=== PATIENT | female | born 2000 | race Hispanic/Latino ===

== ENCOUNTER 2024-07-24 20:24 | Emergency (ER) | payer BC ==
--- OUTSIDE RECORDS SUMMARY | 2024-07-24 20:29 | XMS REPORT | Continuity of Care Document ---
Author Name Unknown Address [address] [facility] [address] [place] [address] [facility] thconnect Address [address] [facility] [address] [place] [address] Care Team Providers Care Acidity Tester Name Role Phone MAX YATES Attending Clinician Unavailable MD JEB Attending Clinician Unavailab le LAB90 Attending Clinician Unavailable JAMES DHALIWAL Attending Clinician Unavaila ble LAB59 Attending Clinician Unavailable MAYA REDMAN Attending Clinician Unavail able ADRIANA VARGHESE Attending Clinician Unavailable Pcp, Patient Does Not Have A Attending Clinician Lab, Adc Fam Pob I Attending Clinician Unavailab Letty Gomez Attending Clinician [phone] LETTY VALENZUELA Attending Clinician Unavailable Payers Payer Name Policy Type Policy Number Effective Date Expirati on Date Source [facility] ([facility]) 9 [id number] 2023 00:00:00 BCBS 2 [id number] 2023 00:00:00 Problems Condition Name Condition Details Condition Category Status Onset Date Resolution Date Last Treatment Date Treating Clinician Comments Source Bilateral hip pain Bilateral hip pain Disease Active 05-09 00:00: 00 Glenna Jackson - Externa l Acute bilateral low back pain without sciatica Acute bilateral low back pain without sciatica Disease Active 05-09 00:00: 00 Glenna Jackson - Externa l Prediabete s Prediabete s Disease Active 24 00:00: 00 Glenna Zhoua l BMI 50.0-59.9, adult BMI 50.0-59.9, adult Disease Active 02-22 00:00: 00 Glenna Zhoua l Allergies, Adverse Reactions, Alerts Allergy Name Allergy Type Status Severity Reaction(s) Onset Date Inactive Date Treating Clinician Comments Source NO KNOWN ALLERGIE S Drug Class Active [facility] Social History Social Habit Start Date Stop Date Quantity Comments Source Gender identity 2023-02-10 21:11:40 Identifies as female gender (finding) Glenna Jackson - External Exposure to SARS-CoV-2 (event) Not sure [facility] Sexual orientation Bernabe calista Jackson - External History of tobacco use Glenna Jackson - External Alcoholic beverage intake 2024-06-15 00:00:00 2024-06-15 00:00:00 Lifetime non-drinker (finding) Glenna Jackson - External Alcohol intake 2024-01-18 00:00:00 2024-01-18 00:00:00 Lifetime non-drinker (finding) Glenna Jackson - External History of Social function 2023-08-16 00:00:00 2023-08-16 00:00:00 Glenna Jackson - External Tobacco use and exposure 2023-02-22 00:00:00 2023-02-22 00:00:00 Smokeless tobacco non-user Glenna Jackson - External Sex assigned at 2000 00:00:00 2000 00:00:00 F Glenna Jackson - External Smoking Status Start Date Stop Date Source Unknown if ever smoked [facility] Never smoked tobacco Glenna Jackson - External Medications Ordered Medication Name Filled Medication Name Start Date Stop Date Current Medication? Ordering Clinician Indication Dosage Frequency Signature (SIG) Comments Components Source Phentermine HCl 37.5 MG oral Tablet 06-15 00:00: 00 Yes [id number] 37.5mg Take 1 tablet (37.5 mg total) by mouth every morning (before breakfast) . Glenna monroe Mounjaro 10 MG/0.5ML subcutaneou s Solution Pen-injecto r 6-14 00:00: 00 Yes Inject 1 injection into the skin once a week for 4 weeks Glenna monroe Celecoxib (CeleBREX) 200 MG oral Capsule 5-10 00:00: 00 Yes [id number] 200mg Q.5D Take 1 capsule (200 mg total) by mouth 2 times daily. Glenna monroe Gabapentin 100 MG oral Capsule 5-10 00:00: 00 Yes [id number] 100mg [id number] 3D Take 1 capsule (100 mg total) by mouth 3 times daily as needed. Glenna mnoroe Phentermine HCl 37.5 MG oral Tablet 04-07 00:00: 00 06-15 00:00 :00 No [id number] 37.5mg Take 1 tablet (37.5 mg total) by mouth every morning (before breakfast) . Glenna monroe Semaglutide -Weight Management (Wegovy) 1.7 MG/0.75ML subcutaneou s Solution Auto-inject or 5-10 00:00: 00 05-09 00:00 :00 No [id number] 1.7mg Inject 1.7 mg into the skin once a week. Glenna monroe Tirzepatide (Mounjaro) 10 MG/0.5ML subcutaneou s Solution Pen-injecto r 3-28 00:00: 00 05-09 00:00 :00 No [id number] 10mg Inject 0.5 mL (10 mg total) into the skin once a week. Glenna Frias l Semaglutide -Weight Management (Wegovy) 1.7 MG/0.75ML subcutaneou s Solution Auto-inject or 2-20 00:00: 00 04-07 00:00 :00 No [id number] 1.7mg Inject 1.7 mg into the skin once a week. Glenna monroe Phentermine HCl 37.5 MG oral Tablet 2-20 00:00: 00 04-07 00:00 :00 No [id number] 37.5mg Take 1 tablet (37.5 mg total) by mouth every morning (before breakfast) . Glenna Jackson - Abelardoa mabel Mounjaro 12.5 MG/0.5ML subcutaneou s Solution Pen-injecto r 1- 00:00: 00 Yes Glenna Zhoua l Phentermine HCl 37.5 MG oral Tablet 11-30 00:00: 00 01-18 00:00 :00 No 37.5mg Take 1 tablet (37.5 mg total) by mouth every morning (before breakfast) . Glenna Acuna Externa l Semaglutide -Weight Management (Wegovy) 1.7 MG/0.75ML subcutaneou s Solution Auto-inject or 2022-11 2- 00:00: 00 01-18 00:00 :00 No [id number] 1.7mg Inject 1.7 mg into the skin once a week. Glenna Jackson - Externa l Semaglutide -Weight Management (Wegovy) 1.7 MG/0.75ML subcutaneou s Solution Auto-inject or 2022-11 00:00: 00 Yes [id number] 1.7mg Inject 1.7 mg into the skin once a week. Glenna Zhoua l Phentermine HCl 37.5 MG oral Tablet 2022-11 00:00: 00 10-18 00:00 :00 No [id number] 37.5mg Take 1 tablet (37.5 mg total) by mouth every morning (before breakfast) . Glenna Jackson - Externa l Phentermine HCl 37.5 MG oral Tablet 2022-11 0 00:00: 00 10-18 00:00 :00 No [id number] 37.5mg Take 1 tablet (37.5 mg total) by mouth every morning (before breakfast) . Glenna Jackson - Externa l Semaglutide -Weight Management (Wegovy) 1 MG/0.5ML subcutaneou s Solution Auto-inject or 2022-11 0- 00:00: 00 10-18 00:00 :00 No [id number] 1mg Inject 1 mg into the skin once a week. Glenna monroe Propranolol HCl 10 MG oral Tablet 18 00:00: 00 Yes [id number] 10mg [id number] 3D TAKE ONE (1) TABLET(S) BY MOUTH THREE TIMES A DAY. Glenna monroe Semaglutide -Weight Management (Wegovy) 1 MG/0.5ML subcutaneou s Solution Auto-inject or 07-16 00:00: 00 Yes [id number] 1mg Inject 1 mg into the skin once a week Glenna monroe Phentermine HCl 37.5 MG oral Tablet 07-16 00:00: 00 Yes [id number] 37.5mg Take 1 tablet (37.5 mg total) by mouth every morning (before breakfast) Glenna monroe Propranolol HCl 10 MG oral Tablet 07-16 00:00: 00 Yes [id number] 10mg Take 1 tablet (10 mg total) by mouth 3 times daily Glenna monroe Semaglutide -Weight Management (Wegovy) 1 MG/0.5ML subcutaneou s Solution Auto-inject or 06-23 00:00: 00 07-16 00:00 :00 No [id number] 1mg Inject 1 mg into the skin once a week Glenna monroe Tirzepatide (Mounjaro) 7.5 MG/0.5ML subcutaneou s Solution Pen-injecto r 05-26 00:00: 00 Yes [id number] 7.5mg Inject 0.5 mL (7.5 mg total) into the skin once a week Glenna monroe Semaglutide -Weight Management (Wegovy) 1 MG/0.5ML subcutaneou s Solution Auto-inject or 05-25 00:00: 00 Yes [id number] 1mg Inject 1 mg into the skin once a week Glenna monroe Phentermine HCl 37.5 MG oral Tablet 05-25 00:00: 00 Yes [id number] 37.5mg Take 1 tablet (37.5 mg total) by mouth every morning (before breakfast) Glenna monroe Mounjaro 5 MG/0.5ML subcutaneou s Solution Pen-injecto r 04-19 00:00: 00 Yes Glenna monroe Semaglutide -Weight Management (Wegovy) 1 MG/0.5ML subcutaneou s Solution Auto-inject or 04-19 00:00: 00 05-25 00:00 :00 No [id number] 1mg Inject 1 mg into the skin once a week Glenna monroe Phentermine HCl 37.5 MG oral Tablet 04-19 00:00: 00 05-25 00:00 :00 No [id number] 18.75mg Take 0.5 tablets (18.75 mg total) by mouth every morning (before breakfast) Patient taking 1/2 tablet Glenna monroe Propranolol HCl 10 MG oral Tablet 03-22 00:00: 00 Yes [id number] 10mg Take 1 tablet (10 mg total) by mouth 3 times daily Glenna monroe Phentermine HCl 37.5 MG oral Tablet 03-22 00:00: 00 Yes [id number] 37.5mg Take 1 tablet (37.5 mg total) by mouth every morning (before breakfast) Glenna monroe Phentermine HCl 37.5 MG oral Tablet 02-22 00:00: 00 Yes [id number] 37.5mg Take 1 tablet (37.5 mg total) by mouth every morning (before breakfast) Glenna monroe Tirzepatide (Mounjaro) 2.5 MG/0.5ML subcutaneou s Solution Pen-injecto r 02-22 00:00: 00 05-25 00:00 :00 No [id number] 2.5mg Inject 0.5 mL (2.5 mg total) into the skin once a week Glenna monroe Immunizations Ordered Immunization Name Filled Immunization Name Date Status Comments Source HEPATITIS A- PEDI/ADOL 2013-07-18 00:00:00 Completed Glenna Seybold - External Meningococcal Vaccine- Conjugate(Menactra) 2013-07-18 00:00:00 Completed Glenna Seybold - External Tdap- (Boostrix, Adacel) 2013-07-18 00:00:00 Completed Glenna Seybold - External Varicella Vaccine 2013-07-18 00:00:00 Completed Glenna Seybold - External HEPATITIS A- PEDI/ADOL 2013-07-18 00:00:00 Completed Glenna Seybold - External Meningococcal Vaccine- Conjugate(Menactra) 2013-07-18 00:00:00 Completed Glenna Seybold - External Tdap- (Boostrix, Adacel) 2013-07-18 00:00:00 Completed Glenna Seybold - External Varicella Vaccine 2013-07-18 00:00:00 Completed Glenna Seybold - External HEPATITIS A- PEDI/ADOL 2013-07-18 00:00:00 Completed Glenna Seybold - External Meningococcal Vaccine- Conjugate(Menactra) 2013-07-18 00:00:00 Completed Glenna Seybold - External Tdap- (Boostrix, Adacel) 2013-07-18 00:00:00 Completed Glenna Seybold - External Varicella Vaccine 2013-07-18 00:00:00 Completed Glenna Seybold - External HEPATITIS A- PEDI/ADOL 2013-07-18 00:00:00 Completed Glenna Seybold - External Meningococcal Vaccine- Conjugate(Menactra) 2013-07-18 00:00:00 Completed Glenna Seybold - External Tdap- (Boostrix, Adacel) 2013-07-18 00:00:00 Completed Glenna Seybold - External Varicella Vaccine 2013-07-18 00:00:00 Completed Glenna Seybold - External HEPATITIS A- PEDI/ADOL 2013-07-18 00:00:00 Completed Glenna Seybold - External Meningococcal Vaccine- Conjugate(Menactra) 2013-07-18 00:00:00 Completed Glenna Seybold - External Tdap- (Boostrix, Adacel) 2013-07-18 00:00:00 Completed Glenna Seybold - External Varicella Vaccine 2013-07-18 00:00:00 Completed Glenna Seybold - External DTaP Unspecified 2004-02-26 00:00:00 Completed Glenna Seybold - External MMR- Measles, Mumps, Rubella 2004-02-26 00:00:00 Completed Glenna Seybold - External IPV- Inactivated Polio Vaccine 2004-02-26 00:00:00 Completed Glenna Seybold - External DTaP Unspecified 2004-02-26 00:00:00 Completed Glenna Seybold - External DTaP Unspecified 2004-02-26 00:00:00 Completed Glenna Seybold - External MMR- Measles, Mumps, Rubella 2004-02-26 00:00:00 Completed Glenna Seybold - External IPV- Inactivated Polio Vaccine 2004-02-26 00:00:00 Completed Glenna Seybold - External MMR- Measles, Mumps, Rubella 2004-02-26 00:00:00 Completed Glenna Seybold - External IPV- Inactivated Polio Vaccine 2004-02-26 00:00:00 Completed Glenna Seybold - External DTaP Unspecified 2004-02-26 00:00:00 Completed Glenna Seybold - External MMR- Measles, Mumps, Rubella 2004-02-26 00:00:00 Completed Glenna Seybold - External IPV- Inactivated Polio Vaccine 2004-02-26 00:00:00 Completed Glenna Seybold - External DTaP Unspecified 2004-02-26 00:00:00 Completed Glenna Seybold - External MMR- Measles, Mumps, Rubella 2004-02-26 00:00:00 Completed Glenna Seybold - External IPV- Inactivated Polio Vaccine 2004-02-26 00:00:00 Completed Glenna Abdiybold - External Hepatitis B, Adolescent Or Pediatric 2000 00:00:00 Completed Glenna Seybold - External IPV- Inactivated Polio Vaccine 2000 00:00:00 Completed Glenna Seybold - External Hepatitis B, Adolescent Or Pediatric 2000 00:00:00 Completed Glenna Seybold - External IPV- Inactivated Polio Vaccine 2000 00:00:00 Completed Glenna Abdiybold - External Hepatitis B, Adolescent Or Pediatric 2000 00:00:00 Completed Glenna Seybold - External IPV- Inactivated Polio Vaccine 2000 00:00:00 Completed Glenna Seybold - External Hepatitis B, Adolescent Or Pediatric 2000 00:00:00 Completed Glenna Seybold - External IPV- Inactivated Polio Vaccine 2000 00:00:00 Completed Glenna Seybold - External Hepatitis B, Adolescent Or Pediatric 2000 00:00:00 Completed Glenna Seybold - External IPV- Inactivated Polio Vaccine 2000 00:00:00 Completed Glenna Seybold - External DPT/HIB 2000 00:00:00 Completed Glenna Seybold - External Hepatitis B, Adolescent Or Pediatric 2000 00:00:00 Completed Glenna Seybold - External DPT/HIB 2000 00:00:00 Completed Glenna Seybold - External Hepatitis B, Adolescent Or Pediatric 2000 00:00:00 Completed Glenna Seybold - External DPT/HIB 2000 00:00:00 Completed Glenna Seybold - External Hepatitis B, Adolescent Or Pediatric 2000 00:00:00 Completed Glenna Seybold - External DPT/HIB 2000 00:00:00 Completed Glenna Seybold - External Hepatitis B, Adolescent Or Pediatric 2000 00:00:00 Completed Glenna Seybold - External DPT/HIB 2000 00:00:00 Completed Glenna Seybold - External Hepatitis B, Adolescent Or Pediatric 2000 00:00:00 Completed Glenna Seybold - External DPT/HIB 2000 00:00:00 Completed Glenna Seybold - External IPV- Inactivated Polio Vaccine 2000 00:00:00 Completed Glenna Seybold - External DPT/HIB 2000 00:00:00 Completed Glenna Seybold - External IPV- Inactivated Polio Vaccine 2000 00:00:00 Completed Glenna Seybold - External DPT/HIB 2000 00:00:00 Completed Glenna Seybold - External IPV- Inactivated Polio Vaccine 2000 00:00:00 Completed Glenna Seybold - External DPT/HIB 2000 00:00:00 Completed Glenna Seybold - External IPV- Inactivated Polio Vaccine 2000 00:00:00 Completed Glenna Seybold - External DPT/HIB 2000 00:00:00 Completed Glenna Seybold - External IPV- Inactivated Polio Vaccine 2000 00:00:00 Completed Glenna Seybold - External DTaP Unspecified Unknown Completed Noah abdiy Seybold - External DPT/HIB Unknown Completed Glenna Silverman bold - External DPT/HIB Unknown Completed Glenna Silverman bold - External HEPATITIS A- PEDI/ADOL Unknown Completed Glenna Seybold - External Hepatitis B, Adolescent Or Pediatric Unknown Completed Glenna Seybold - External Hepatitis B, Adolescent Or Pediatric Unknown Completed Glenna Seybold - External Meningococcal Vaccine- Conjugate(Menactra) Unknown Completed Glenna Perez eybold - External MMR- Measles, Mumps, Rubella Unknown Completed Glenna Seybold - External IPV- Inactivated Polio Vaccine Unknown Completed Glenna Seybold - External IPV- Inactivated Polio Vaccine Unknown Completed Glenna Seybold - External IPV- Inactivated Polio Vaccine Unknown Completed Glenna Seybold - External Tdap- (Boostrix, Adacel) Unknown Completed Glenna Seybold - External Varicella Vaccine Unknown Completed Delfino ferrari Seybold - External DTaP Unspecified Unknown Completed Noah silverman Seybold - External DPT/HIB Unknown Completed Glenna Silverman bold - External DPT/HIB Unknown Completed Glenna Silverman bold - External HEPATITIS A- PEDI/ADOL Unknown Completed Glenna Seybold - External Hepatitis B, Adolescent Or Pediatric Unknown Completed Glenna Seybold - External Hepatitis B, Adolescent Or Pediatric Unknown Completed Glenna Seybold - External Meningococcal Vaccine- Conjugate(Menactra) Unknown Completed Glenna Perez eybold - External MMR- Measles, Mumps, Rubella Unknown Completed Glenna Seybold - External IPV- Inactivated Polio Vaccine Unknown Completed Glenna Seybold - External IPV- Inactivated Polio Vaccine Unknown Completed Glenna Seybold - External IPV- Inactivated Polio Vaccine Unknown Completed Glenna Seybold - External Tdap- (Boostrix, Adacel) Unknown Completed Glenna Seybold - External Varicella Vaccine Unknown Completed Delfino lsey Seybold - External DTaP Unspecified Unknown Completed Noah abdiy Seybold - External DPT/HIB Unknown Completed Glenna Silverman bold - External DPT/HIB Unknown Completed Glenna Silverman bold - External HEPATITIS A- PEDI/ADOL Unknown Completed Glenna Seybold - External Hepatitis B, Adolescent Or Pediatric Unknown Completed Glenna Seybold - External Hepatitis B, Adolescent Or Pediatric Unknown Completed Glenna Seybold - External Meningococcal Vaccine- Conjugate(Menactra) Unknown Completed Glenna S eybold - External MMR- Measles, Mumps, Rubella Unknown Completed Glenna Seybold - External IPV- Inactivated Polio Vaccine Unknown Completed Glenna Seybold - External IPV- Inactivated Polio Vaccine Unknown Completed Glenna Seybold - External IPV- Inactivated Polio Vaccine Unknown Completed Glenna Seybold - External Tdap- (Boostrix, Adacel) Unknown Completed Glenna Seybold - External Varicella Vaccine Unknown Completed Delfino trevon Seybold - External DTaP Unspecified Unknown Completed Noah silverman Seybold - External DPT/HIB Unknown Completed Glenna Silverman bold - External DPT/HIB Unknown Completed Glenna Silverman bold - External HEPATITIS A- PEDI/ADOL Unknown Completed Glenna Seybold - External Hepatitis B, Adolescent Or Pediatric Unknown Completed Glenna Seybold - External Hepatitis B, Adolescent Or Pediatric Unknown Completed Glenna Seybold - External Meningococcal Vaccine- Conjugate(Menactra) Unknown Completed Glenna Perez eybold - External MMR- Measles, Mumps, Rubella Unknown Completed Glenna Seybold - External IPV- Inactivated Polio Vaccine Unknown Completed Glenna ybold - External IPV- Inactivated Polio Vaccine Unknown Completed Glenna Seybold - External IPV- Inactivated Polio Vaccine Unknown Completed Glenna Seybold - External Tdap- (Boostrix, Adacel) Unknown Completed Glenna Seybold - External Varicella Vaccine Unknown [facility]- (Boostrix, Adacel) Unknown Completed Glenna Seybold - External Hepatitis B- 2 Dose (HEPLISAV B) Unknown Completed Glenna Seybold - External DTaP Unspecified Unknown Completed Noah silverman Seybold - External DPT/HIB Unknown Completed Glenna Silverman bold - External DPT/HIB Unknown Completed Glenna Silverman bold - External HEPATITIS A- PEDI/ADOL Unknown Completed Glenna Seybold - External Hepatitis B, Adolescent Or Pediatric Unknown Completed Glenna Seybold - External Hepatitis B, Adolescent Or Pediatric Unknown Completed Glenna Seybold - External Meningococcal Vaccine- Conjugate(Menactra) Unknown Completed Glenna S eybold - External MMR- Measles, Mumps, Rubella Unknown Completed Glenna Seybold - External IPV- Inactivated Polio Vaccine Unknown Completed Glenna Seybold - External IPV- Inactivated Polio Vaccine Unknown Completed Glenna Seybold - External IPV- Inactivated Polio Vaccine Unknown Completed Glenna Seybold - External Tdap- (Boostrix, Adacel) Unknown Completed Glenna Seybold - External Varicella Vaccine Unknown Completed Delfino trevon Seybold - External Tdap- (Boostrix, Adacel) Unknown Completed Glenna Seybold - External Hepatitis B- 2 Dose (HEPLISAV B) Unknown Completed Glenna Seybold - External DTaP Unspecified Unknown Completed Noah silverman Seybold - External DPT/HIB Unknown Completed Glenna Sey bold - External DPT/HIB Unknown Completed Glenna Silverman bold - External HEPATITIS A- PEDI/ADOL Unknown Completed Glenna Seybold - External Hepatitis B, Adolescent Or Pediatric Unknown Completed Glenna Seybold - External Hepatitis B, Adolescent Or Pediatric Unknown Completed Glenna Seybold - External Meningococcal Vaccine- Conjugate(Menactra) Unknown Completed Glenna Perez eybold - External MMR- Measles, Mumps, Rubella Unknown Completed Glenna Seybold - External IPV- Inactivated Polio Vaccine Unknown Completed Glenna Seybold - External IPV- Inactivated Polio Vaccine Unknown Completed Glenna Seybold - External IPV- Inactivated Polio Vaccine Unknown Completed Glenna Seybold - External Tdap- (Boostrix, Adacel) Unknown Completed Glenna Seybold - External Varicella Vaccine Unknown Completed Delfino trevon Seybold - External Tdap- (Boostrix, Adacel) Unknown Completed Glenna Seybold - External Hepatitis B- 2 Dose (HEPLISAV B) Unknown Completed Glenna Seybold - External DTaP Unspecified Unknown Completed Noah abdiy Seybold - External DPT/HIB Unknown Completed Glenna Sey bold - External DPT/HIB Unknown Completed Glenna Sey bold - External HEPATITIS A- PEDI/ADOL Unknown Completed Glenna Seybold - External Hepatitis B, Adolescent Or Pediatric Unknown Completed Glenna Seybold - External Hepatitis B, Adolescent Or Pediatric Unknown Completed Glenna Jimenezold - External Meningococcal Vaccine- Conjugate(Menactra) Unknown Completed Glenna Perez eybold - External MMR- Measles, Mumps, Rubella Unknown Completed Glenna Jimenezold - External IPV- Inactivated Polio Vaccine Unknown Completed Glenna Abdiybold - External IPV- Inactivated Polio Vaccine Unknown Completed Glenna Jimenezold - External IPV- Inactivated Polio Vaccine Unknown Completed Glenna Abdiybold - External Tdap- (Boostrix, Adacel) Unknown Completed Glenna Abdiybold - External Varicella Vaccine Unknown Completed Delfino michaeltrevon Seybold - External Tdap- (Boostrix, Adacel) Unknown Completed Glenna Abdiybold - External Hepatitis B- 2 Dose (HEPLISAV B) Unknown Completed Glenna Abdiybold - External Vital Signs Vital Name Observation Time Observation Value Comments S ource Systolic blood pressure 2024-05-09 15:35:00 120 mm[Hg] Glenna Abdiybo ld - External Diastolic blood pressure 2024-05-09 15:35:00 76 mm[Hg] Glenna Abdiybo ld - External Heart rate 2024-05-09 15:35:00 83 /min Kelse y Seybold - External Body temperature 2024-05-09 15:35:00 36.44 Erica Glenna Seybold - External Respiratory rate 2024-05-09 15:35:00 14 /min Glenna Seybold - External Body height 2024-05-09 15:35:00 157.5 cm Miriam lester Seybold - External Body weight 2024-05-09 15:35:00 83.008 kg Miriam lester Seybold - External BMI 2024-05-09 15:35:00 33.47 kg/m2 Miriam ey Seybold - External Systolic blood pressure 2024-04-07 16:00:00 100 mm[Hg] Glenna Seybo ld - External Diastolic blood pressure 2024-04-07 16:00:00 60 mm[Hg] Glenna Seybo ld - External Heart rate 2024-04-07 16:00:00 74 /min Kelse y Seybold - External Body temperature 2024-04-07 16:00:00 37.06 Erica Glenna Seybold - External Respiratory rate 2024-04-07 16:00:00 18 /min Glenna Seybold - External Body height 2024-04-07 16:00:00 157.5 cm Miriam ey Seybold - External Body weight 2024-04-07 16:00:00 85.276 kg Miriam ey Seybold - External BMI 2024-04-07 16:00:00 34.39 kg/m2 Miriam ey Seybold - External Oxygen saturation in Arterial blood by Pulse oximetry 2024-04-07 16:00:00 98 /min Glenna Seybo ld - External Systolic blood pressure 2024-01-18 13:50:00 104 mm[Hg] Glenna Seybo ld - External Diastolic blood pressure 2024-01-18 13:50:00 64 mm[Hg] Glenna Seybo ld - External Heart rate 2024-01-18 13:50:00 76 /min Kelse y Seybold - External Body temperature 2024-01-18 13:50:00 36.5 Erica Glenna Seybold - External Respiratory rate 2024-01-18 13:50:00 14 /min Glenna Seybold - External Body height 2024-01-18 13:50:00 157.5 cm Miriam ey Seybold - External Body weight 2024-01-18 13:50:00 86.183 kg Miriam ey Seybold - External BMI 2024-01-18 13:50:00 34.75 kg/m2 Miriam ey Seybold - External Systolic blood pressure 2023-12-09 16:49:00 106 mm[Hg] Glenna Seybo ld - External Diastolic blood pressure 2023-12-09 16:49:00 68 mm[Hg] Glenna Seybo ld - External Heart rate 2023-12-09 16:49:00 71 /min Kelse y Seybold - External Body temperature 2023-12-09 16:49:00 36.56 Erica Glenna Seybold - External Respiratory rate 2023-12-09 16:49:00 18 /min Glenna Seybold - External Body height 2023-12-09 16:49:00 157.5 cm Miriam ey Seybold - External Body weight 2023-12-09 16:49:00 90.357 kg Miriam ey Seybold - External BMI 2023-12-09 16:49:00 36.43 kg/m2 Miriam ey Seybold - External Systolic blood pressure 2023-10-18 14:27:00 104 mm[Hg] Glenna Seybo ld - External Diastolic blood pressure 2023-10-18 14:27:00 58 mm[Hg] Glenna Seybo ld - External Body temperature 2023-10-18 14:27:00 36.22 Erica Glenna Seybold - External Respiratory rate 2023-10-18 14:27:00 15 /min Glenna Seybold - External Body height 2023-10-18 14:27:00 157.5 cm Miriam ey Seybold - External Body weight 2023-10-18 14:27:00 95.709 kg Miriam ey Seybold - External BMI 2023-10-18 14:27:00 38.59 kg/m2 Miriam ey Seybold - External Systolic blood pressure 2023-07-16 13:08:00 110 mm[Hg] Glenna Seybo ld - External Diastolic blood pressure 2023-07-16 13:08:00 64 mm[Hg] Glenna Seybo ld - External Heart rate 2023-07-16 13:08:00 80 /min Kelse y Seybold - External Body temperature 2023-07-16 13:08:00 36.28 Erica Glenna Seybold - External Respiratory rate 2023-07-16 13:08:00 20 /min Glenna Seybold - External Body height 2023-07-16 13:08:00 157.5 cm Miriam ey Seybold - External Body weight 2023-07-16 13:08:00 112.401 kg Miriam ey Seybold - External BMI 2023-07-16 13:08:00 45.32 kg/m2 Miriam ey Seybold - External Oxygen saturation in Arterial blood by Pulse oximetry 2023-07-16 13:08:00 97 /min Glenna Seybo ld - External Systolic blood pressure 2023-05-25 15:41:00 118 mm[Hg] Glenna Seybo ld - External Diastolic blood pressure 2023-05-25 15:41:00 74 mm[Hg] Glenna Seybo ld - External Heart rate 2023-05-25 15:41:00 130 /min Kelse y Seybold - External Body temperature 2023-05-25 15:41:00 37.17 Erica Glenna Seybold - External Respiratory rate 2023-05-25 15:41:00 14 /min Glenna Seybold - External Body height 2023-05-25 15:41:00 157.5 cm Miriam ey Seybold - External Body weight 2023-05-25 15:41:00 121.564 kg Miriam ey Seybold - External BMI 2023-05-25 15:41:00 49.02 kg/m2 Miriam ey Seybold - External Respiratory rate 2023-04-19 13:19:00 16 /min Glenna Seybold - External Body height 2023-04-19 13:19:00 157.5 cm Miriam ey Seybold - External Body weight 2023-04-19 13:19:00 129.457 kg Miriam ey Seybold - External BMI 2023-04-19 13:19:00 52.20 kg/m2 Miriam ey Seybold - External Systolic blood pressure 2023-04-19 13:19:00 122 mm[Hg] Glenna Seybo ld - External Diastolic blood pressure 2023-04-19 13:19:00 76 mm[Hg] Glenna Seybo ld - External Heart rate 2023-04-19 13:19:00 80 /min Kelse y Seybold - External Body temperature 2023-04-19 13:19:00 36.89 Erica Glenna Seybold - External Systolic blood pressure 2023-03-22 13:04:00 108 mm[Hg] Glenna Seybo ld - External Diastolic blood pressure 2023-03-22 13:04:00 62 mm[Hg] Glenna Seybo ld - External Heart rate 2023-03-22 13:04:00 84 /min Kelse y Seybold - External Body temperature 2023-03-22 13:04:00 36.39 Erica Glenna Seybold - External Respiratory rate 2023-03-22 13:04:00 16 /min Glenna Seybold - External Body height 2023-03-22 13:04:00 157.5 cm Miriam ey Seybold - External Body weight 2023-03-22 13:04:00 131.725 kg Miriam ey Seybold - External BMI 2023-03-22 13:04:00 53.11 kg/m2 Miriam ey Seybold - External Oxygen saturation in Arterial blood by Pulse oximetry 2023-03-22 13:04:00 98 /min Glenna Jimenezo ld - External Systolic blood pressure 2023-02-22 18:31:00 110 mm[Hg] Glenna Jimenezo ld - External Diastolic blood pressure 2023-02-22 18:31:00 66 mm[Hg] Glenna Jimenezo ld - External Heart rate 2023-02-22 18:31:00 100 /min Citlalli y Seybold - External Body temperature 2023-02-22 18:31:00 37 Erica Glenna Seybold - External Respiratory rate 2023-02-22 18:31:00 15 /min Glenna Abdiybold - External Body height 2023-02-22 18:31:00 157.5 cm Miriam ey Seybold - External Body weight 2023-02-22 18:31:00 137.893 kg Miriam ey Seybold - External BMI 2023-02-22 18:31:00 55.60 kg/m2 Miriam ey Seybold - External Encounters Start Date/Time End Date/Time Encounter Type Admission Type Attending [facility] Care Department Encounter ID Source 2024-07-18 08:00:00 2024-07-18 08:00:00 Outpatient MAX YATES [id number] Glenna Jackson 2024-06-15 08:00:00 2024-06-15 08:00:00 Outpatient MAX YATES [id number] Glenna lupe 2024-06-15 08:00:00 2024-06-15 08:00:00 Outpatient MAX YATES [id number] Glenna Jackson 2024-05-09 11:00:00 2024-05-09 11:00:00 Outpatient MAX YATES [id number] Glenna Jackson 2024-05-02 00:00:00 2024-05-02 00:00:00 Outpatient MD GLENNA SWANSON [id number] Glenna Abdiybja 2024-05-01 00:00:00 2024-05-01 00:00:00 Outpatient MAX YATES GLENNA CHOE [id number] Glenna Jackson 2024-04-10 00:00:00 2024-04-10 00:00:00 Outpatient GLENNA CHOE [id number] Glenna Abdiybja 2024-04-07 11:00:00 2024-04-07 11:00:00 Outpatient MILAN AMX GLENNA CHOE [id number] Glenna Abdiybja 2024-02-22 00:00:00 2024-02-22 00:00:00 Outpatient MILAN MAX CHOE [id number] Glenna Jackson 2024-01-18 08:45:00 2024-01-18 08:45:00 Outpatient LAB90 GLENNA CHOE [id number] Glenna Abdiybja 2024-01-18 08:00:00 2024-01-18 08:00:00 Outpatient Y[facility]AV[facility]abel [facility] [id number] [facility] 2023-12-27 00:00:00 2023-12-27 00:00:00 Outpatient YOAVMabel MAX CHOE [id number] Glenna Abdiybja 2023-12-09 15:30:00 2023-12-09 15:30:00 Outpatient JAMES DHALIWAL [id number] [facility] 2023-12-09 11:45:00 2023-12-09 11:45:00 Outpatient LAB59 GLENNA CHOE [id number] Glenna Seybja 2023-12-09 11:00:00 2023-12-09 11:00:00 Outpatient MAYA REDMAN [id number] [facility] 2023-12-09 00:00:00 2023-12-09 00:00:00 Outpatient MD GLENNA SWANSON [id number] [facility] 2023-11-26 00:00:00 2023-11-26 00:00:00 Outpatient MAX YATES [id number] [facility] 2023-11-26 00:00:00 2023-11-26 00:00:00 Outpatient MAX YATES [id number] Glenna Seybja 2023-11-23 00:00:00 2023-11-23 00:00:00 Outpatient MILAN MAX GLENNA CHOE [id number] Glenna Seybja 2023-11-05 00:00:00 2023-11-05 00:00:00 Outpatient MILAN MAX GLENNA CHOE [id number] Glenna Seybja 2023-10-24 00:00:00 2023-10-24 00:00:00 Outpatient MILAN MAX CHOE [id number] Glenna Seybja 2023-10-22 00:00:00 2023-10-22 00:00:00 Outpatient KESHIAARLETHChris ADRIANA GLENNA CHOE [id number] Glenna Seybja 2023-10-22 00:00:00 2023-10-22 00:00:00 Outpatient MILAN MAX CHOE [id number] Glenna Seybja 2023-10-18 09:15:00 2023-10-18 09:15:00 Outpatient FRITZ CHOE [id number] Glenna Seybold 2023-10-18 08:30:00 2023-10-18 08:30:00 Outpatient YOAVMabel MAX CHOE [id number] Glenna Seybja 2023-10-14 00:00:00 2023-10-14 00:00:00 Outpatient YOAVMabel MAX CHOE [id number] Glenna Seybold 2023-09-15 00:00:00 2023-09-15 00:00:00 Outpatient KESHIAARLETHADRIANA Perez GLENNA CHOE [id number] Glenna Seybold 2023-09-09 00:00:00 2023-09-09 00:00:00 Outpatient MD GLENNA SWANSON [id number] Glenna Seybja 2023-08-31 00:00:00 2023-08-31 00:00:00 Outpatient MD GLENNA SWANSON [id number] Glenna Seybold 2023-08-24 00:00:00 2023-08-24 00:00:00 Outpatient MAX YATES [id number] [facility] 2023-08-18 00:00:00 2023-08-18 00:00:00 Outpatient MD GLENNA SWANSON [id number] Glenna Seybja 2023-08-15 00:00:00 2023-08-15 00:00:00 Outpatient MAX YATES [id number] [facility] 2023-08-12 00:00:00 2023-08-12 00:00:00 Outpatient MAX YATES [id number] [facility] 2023-08-11 00:00:00 2023-08-11 00:00:00 Outpatient MD GLENNA SWANSON [id number] [facility] 2023-07-26 08:00:00 2023-07-26 08:00:00 Outpatient MAX YATES [id number] Glenna [facility] 2023-07-23 00:00:00 2023-07-23 00:00:00 Outpatient MD GLENNA SWANSON [id number] [facility] 2023-07-18 00:00:00 2023-07-18 00:00:00 Outpatient GLENNA CHOE [id number] [facility] 2023-07-16 08:00:00 2023-07-16 08:00:00 Outpatient MAX YATES [id number] [facility] 2023-06-22 00:00:00 2023-06-22 00:00:00 Outpatient ADRIANA VARGHESE [id number] Glenna Seybold 2023-05-31 08:00:00 2023-05-31 08:00:00 Outpatient MAX YATES [id number] [facility] 2023-05-25 11:00:00 2023-05-25 11:00:00 Outpatient MAX YATES [id number] Glenna Seybja 2023-04-19 08:30:00 2023-04-19 08:30:00 Outpatient MAX YATES [id number] Glenna Jackson 2023-03-22 08:00:00 2023-03-22 08:00:00 Outpatient MAX YATES [id number] Glenna Jackson 2023-03-17 00:00:00 2023-03-17 00:00:00 Outpatient MAX YATES GLENNA [id number] Glenna Jackson 2023-02-22 14:15:00 2023-02-22 14:15:00 Outpatient LAB90 GLENNA CHOE [id number] [facility] 2023-02-22 13:30:00 2023-02-22 13:30:00 Outpatient MAX YATES GLENNA [id number] Glenna Jackson 2020-07-11 00:00:00 2020-07-11 00:00:00 Letter (Out) Pcp, Patient Does Not Have A [facility] [id number] [facility] 2020-07-10 13:10:20 2020-07-10 13:30:20 Laboratory Only Lab, Adc Fam Pob I Catarina Valenzuelathia [facility] [id number] [facility] 2020-07-10 13:20:00 2020-07-10 13:20:00 Outpatient R LETTY VALENZUELA [facility] [id number] [facility] Notes Date/Time Note Provider Source 2024-05-09 10:40:21 Chief Complaint Patient presents with Follow-up Follow up on weight management and follow up on xrays on back and hips. Delmi Lenz MA II GlennaManuel [facility] 2024-04-07 11:04:31 Chief Complaint Patient presents with Follow-up Weigh loss Chloe Tony LVN [facility] 2024-01-18 07:52:31 Chief Complaint Patient presents with Follow-up Follow up on weight management Delmi Lenz MA II [place] 2023-12-09 15:05:39 Chief Complaint Patient presents with Skin Problem Bumps on R thumb No Known Allergies Zara Simms [place] 2023-12-09 10:50:22 Marcelle Davies is here today for her Well Woman Exam. Patient's last menstrual period was 11/18/2023. Control Method: abstinence The patient's last Pap smear was on never and results were no results Additional concerns patient would like to address with provider: nothing [place] 2023-07-16 08:11:43 Formatting of this n ote might be different from the original. Patient here for a follow up visit Kieran Salamanca URINALYSIS TECHNICIAN [facility]
[2024-07-24 21:31] LABS: Absolute Eosinophils 0.1 K/uL (0-0.5); Absolute Lymphocytes (CBC) 1.9 K/uL (0.7-4.9); Absolute Monocytes 0.7 K/uL (0.1-1.3); Basophils % 0.3 % (0-1.3); Eosinophils % 0.8 % (0-4.4); Hematocrit 38.2 % (36.0-45.0); Hemoglobin 12.6 g/dL (12.0-15.0); Lymphocytes % 14.1 % (15.3-44.8); MCH 32.6 pg (27.0-35.0); MCHC 33.1 g/dL (32.0-36.0); MCV 98.6 fL (80-100); MPV 9.9 fL (7.6-11.3); Monocytes % 4.8 % (3.3-12.3); Platelets 234 thou/uL (152-406); RBC Red Blood Cell Count 3.87 M/uL (3.86-4.86); Red Cell Distribution Width 14.8 % (12.1-15.2); Specific Gravity 1.027 (1.005-1.030)
[2024-07-24 21:41] LABS: Specific Gravity 1.028 (1.005-1.030); Urine Bacteria None Seen /HPF (<20); Urine Bilirubin NEGATIVE (Negative); Urine Blood Negative (Negative); Urine Clarity Extremely Turbid (Clear); Urine Color Yellow (Yellow); Urine Culture Reflex Order NOT NEEDED; Urine Glucose NEGATIVE (Negative); Urine Ketones TRACE (Negative); Urine Microscopic Reflex YN ORDER UMIC; Urine Mucus 3+ /HPF (None Seen); Urine Nitrite NEGATIVE (Negative); Urine Protein TRACE (Negative); Urine RBC <5 /HPF (None Seen); Urine Urobilinogen 1+ (Normal)
[2024-07-24 21:57] LABS: Albumin 3.5 g/dL (3.4-5.0); Anion Gap 7.7 mEq/L (5.0-15.0); Bilirubin Total 0.4 mg/dL (0.2-1.0); Globulin 3.5 g/dL (2.3-3.5); Potassium 3.7 mEq/L (3.5-5.1)
--- NOTE | 2024-07-24 22:56 | RAD REPORT ---
EXAM DESCRIPTION: CT - Chest Abdomen Pelvis W Cont - 07/24/2024 10:11 pm CLINICAL HISTORY: Chest and abdominal pain. Back pain. Rib pain COMPARISON: none TECHNIQUE: Computed axial tomography of the chest, abdomen and pelvis was obtained. 100 cc Isovue-30 0 was administered intravenously. Oral contrast was not requested. This limits evaluation of bowel. All CT scans are performed using dose optimization technique as appropriate and may include automated exposure control or mA/KV adjustment according to patient size. FINDINGS: The lungs are clear No mediastinal or hilar lymphadenopathy. No pleural effusion. No pericardial effusion. Liver, spleen, pancreas, adrenals and left kidney are unremarkable. A 9 millimeter low to intermediate density right renal mass. Gallbladder mildly distended 2 centimeter right ovarian cyst has an irregular wall and has likely recently ruptured. No significan t free fluid. No followup recommended No evidence of diverticulitis IMPRESSION: 9 millimeter low to intermediate density right renal mass does not represent a simple cy st. It is recommended that patient have ultrasound for further evaluation 2 centimeter right ovarian cyst has an irregular wall and has likely recently ruptured. No significan t free fluid Mild gallbladder distention
[2024-07-24] MEDS ORDERED: KETOROLAC 30 MG/ML INJ ONE (23:35)
[2024-07-24] MEDS ORDERED: ONDANSETRON 4 MG/2 ML VIAL ONE (23:35)
[2024-07-24] MEDS ORDERED: NA CHLORIDE 0.9% 1,000 ML ONE (23:36)
--- NOTE | 2024-07-25 01:46 | EDPHYS ---
Physician Documentation [facility] Name: Amy Dick Age: 24 yrs Sex: Female : 2000 Arrival Date: 07/24/2024 Time: 20:24 Bed 19 Private MD: ED Physician Chi Kraus HPI: 07/25 01:46 This 24 yrs old Female presents to ER via Ambulatory with complaints of Spine kb pain, Rib pain, Abdominal Pain. 01:46 Patient is a 24-year-old female who presents for diffuse back pain, bilateral lower rib kb pain and upper abdominal pain that started 1 week ago. States the pain has been intermittent. Denies nausea, vomiting, diarrhea, fever, chills, cough, congestion. States the pain came again today so she wanted to come get it evaluated.. 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 - Infectious Disease History:: Denies. - Social history:: Smoking status: Reported history of juuling and/or vaping. ROS: 07/25 01:42 Constitutional: As per HPI kb Exam: 01:42 Constitutional: This is a well developed, well nourished patient who is awake, alert, kb and in no acute distress. Head/Face: Normocephalic, atraumatic. ENT: Moist Mucous membranes Cardiovascular: Regular rate Respiratory: Respirations even and unlabored. No increased work of breathing. Talking in full sentences Back: No spinal tenderness. No costovertebral tenderness. Full range of motion. Skin: Warm, dry with normal turgor. Normal color. MS/ Extremity: Pulses equal, no cyanosis. Neurovascular intact. Full, normal range of motion. Neuro: Awake and alert, GCS 15, oriented to person, place, time, and situation. Moves all extremities. Normal gait. 01:42 Abdomen/GI: Inspection: abdomen appears normal, Bowel sounds: normal, Palpation: soft, in all quadrants, mild abdominal tenderness, in the right upper quadrant and left upper quadrant, Vital Signs: 07/24 20:57 BP 117 / 68; Pulse 60; Resp 14; Temp 97.9(O); Pulse Ox 100% on R/A; Weight 81.65 kg; ss Height 5 ft. 2 in. ; Pain 10/10; 23:00 BP 112 / 65; Pulse 60; Resp 17 S; Pulse Ox 100% on R/A; ha1 07/25 00:00 BP 113 / 63; Pulse 65; Resp 17 S; Pulse Ox 100% on R/A; ha1 00:48 BP 112 / 60; Pulse 70; Resp 17 S; Pulse Ox 100% on R/A; ha1 01:30 BP 117 / 76; Pulse 66; Resp 17 S; Pulse Ox 100% on R/A; ha1 07/24 20:57 Body Mass Index 32.92 (81.65 kg, 157.48 cm) ss 07/24 20:57 Pain Scale: Adult ss MDM: 07/24 20:33 Patient medically screened. 07/25 01:43 Differential diagnosis: cholelithiasis, cholecystitis, musculoskeletal pain, kb pancreatitis. Data reviewed: vital signs, nurses notes. Counseling: I had a detailed discussion with the patient and/or guardian regarding the historical points, exam findings, and any diagnostic results supporting the discharge/admit diagnosis, lab results, radiology results, the need for outpatient follow up, a family practitioner, to return to the emergency department if symptoms worsen or persist or if there are any questions or concerns that arise at home. 07/24 20:59 Order name: CBC with Diff; Complete Time: 21:38 kb 07/24 20:59 Order name: CMP; Complete Time: 21:59 kb 07/24 20:59 Order name: Lipase; Complete Time: 21:59 kb 07/24 20:59 Order name: Test, Urine; Complete Time: 21:38 kb 07/24 20:59 Order name: Urinalysis w/ reflexes; Complete Time: 21:41 kb 07/24 20:59 Order name: CT Chest, Abdomen, Pelvis - W/Contrast; Complete Time: 22:57 kb 07/24 22:58 Order name: US Abdomen Limited kb 07/24 23:55 Order name: Renal Ultrasound-Complete EDMS 07/24 20:59 Order name: IV Saline Lock; Complete Time: 21:19 kb 07/24 20:59 Order name: Labs collected and sent; Complete Time: 21:19 kb Administered Medications: 07/24 23:40 Drug: NS 0.9% IV 1000 ml IV at 1 bolus Per protocol; 1000 mL bolus Route: IV; Rate: 1 ha1 bolus; Site: right antecubital; 07/25 00:45 Follow up: Response: No adverse reaction; IV Status: Completed infusion; IV Intake: ha1 1000ml 07/24 23:42 Drug: Ondansetron IVP 4 mg IVP once; over 2 minutes Route: IVP; Site: right antecubital;1 07/25 00:00 Follow up: Response: No adverse reaction; Marked relief of symptoms ha1 07/24 23:45 Drug: TORadol - Ketorolac IVP 15 mg IVP once Route: IVP; Site: right antecubital; 1 07/25 00:00 Follow up: Response: No adverse reaction; Marked relief of symptoms; Pain is decreased ha1 Disposition: 03:15 Co-signature as Attending Physician, Chi Kraus MD I reviewed the patient's care rt provided by the Advanced Practice Provider and agree with the diagnosis and treatment plan. Disposition Summary: 07/25/24 01:45 Discharge Ordered Notes: Location: Home kb Condition: Stable kb Diagnosis - Upper abdominal pain, unspecified kb - Back Pain kb - Other ovarian cysts kb Followup: kb - With: Emergency Department - When: As needed - Reason: Worsening of condition Followup: kb - With: Private Physician - When: 2 - 3 days - Reason: Recheck today's complaints, Continuance of care, Re-evaluation by your physician Discharge Instructions: - Discharge Summary Sheet kb - Acute Back Pain, Adult kb - Abdominal Pain, Adult, [id number] kb - Ovarian Cyst, [id number] kb Forms: - Medication Reconciliation Form kb - Antibiotic Education kb - Prescription Opioid Use kb - Patient Portal Instructions kb - Leadership Thank You Letter kb Prescriptions: - Diclofenac Sodium 75 mg Oral tablet, delayed release (enteric coated) - take 1 tablet ORAL route 2 times per day As needed; 30 tablet; Refills: 0, kb Product Selection Permitted - orphenadrine citrate 100 mg Oral Tablet Sustained Release - take 1 tablet ORAL route 2 times per day As needed; 20 tablet; Refills: 0, kb Product Selection Permitted Signatures: Dispatcher [employer] Karen Lewis, CHLORINATOR OPERATOR-C CHLORINATOR OPERATOR-Ckb Paulina Corado, RN RN ss Diamond Tejada, CARLOS RN ha1 Chi Kraus MD MD rt Corrections: (The following items were deleted from the chart) 07/24 21:00 21:00 CBC+H.LAB.BRZ ordered. EDMS EDMS 21:00 21:00 COMPREHENSIVE METABOLIC PANEL+C.LAB.BRZ ordered. EDMS EDMS 21:00 21:00 LIPASE+C.LAB.BRZ ordered. EDMS EDMS 21:00 21:00 Test, Urine+UC.LAB.BRZ ordered. EDMS EDMS 21:00 21:00 Urinalysis+U.LAB.BRZ ordered. EDMS EDMS 23:55 22:58 Rp Exam Limited+US.RAD.BRZ ordered. EDMS EDMS
--- NOTE | 2024-07-25 01:46 | ER ---
Nurse's Notes [facility] Name: Amy Dick Age: 24 yrs Sex: Female : 2000 Arrival Date: 07/24/2024 Time: 20:24 Bed 19 Private MD: Diagnosis: Upper abdominal pain, unspecified;Back Pain;Other ovarian cysts Presentation: 07/24 20:57 Chief complaint: Patient states: back pain, rib pain and upper abd pain that has been ss intermittent x 1 week. Coronavirus screen: Client denies travel out of the [place] in the last 14 days. Ebola Screen: Patient denies exposure to infectious person. Patient denies travel to an Ebola-affected area in the 21 days before illness onset. Initial Sepsis Screen: Does the patient meet any 2 criteria? No. Patient's initial sepsis screen is negative. Does the patient have a suspected source of infection? No. Patient's initial sepsis screen is negative. Risk Assessment: Do you want to hurt yourself or someone else? Patient reports no desire to harm self or others. Onset of symptoms was July 17, 2024. 20:57 Method Of Arrival: Ambulatory ss 20:57 Acuity: ELLE 3 ss Triage Assessment: 20:57 General: Appears uncomfortable, Behavior is calm, cooperative. Neuro: Level of ss Consciousness is awake, alert, obeys commands. Respiratory: Airway is patent Respiratory effort is even, unlabored, Respiratory pattern is regular, symmetrical. 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 - Infectious Disease History:: Denies. - Social history:: Smoking status: Reported history of juuling and/or vaping. Screenin:00 [facility] ED Fall Risk Assessment (Adult) History of falling in the last 3 months, ha1 including since admission No falls in past 3 months (0 pts) Confusion or Disorientation No (0 pts) Intoxicated or Sedated No (0 pts) Impaired Gait No (0 pts) Mobility Assist Device Used No (0 pt) Altered Elimination No (0 pt) Score/Fall Risk Level 0 - 2 = Low Risk Oriented to surroundings, Maintained a safe environment, Hourly rounding (assess needs \T\ fall precautionary measures) done. Abuse screen: Denies threats or abuse. Denies injuries from another. Nutritional screening: No deficits noted. Tuberculosis screening: No symptoms or risk factors identified. Assessment: 23:00 General: Appears uncomfortable, Behavior is calm, cooperative. Pain: Complains of pain ha1 in BACK, ABDOMEN, AND RIBS. Neuro: Level of Consciousness is awake, alert, obeys commands, Oriented to person, place, time, situation. Cardiovascular: Capillary refill < 3 seconds Patient's skin is warm and dry. Respiratory: Airway is patent Respiratory effort is even, unlabored, Respiratory pattern is regular, symmetrical. GI: Abdomen is round non-distended, obese, Bowel sounds present X 4 quads. Abd is soft and non tender X 4 quads. Reports lower abdominal pain, nausea. Derm: Skin is pink, warm \T\ dry. Musculoskeletal: Circulation, motion, and sensation intact. Range of motion: intact in all extremities, Reports pain in back. 07/25 00:46 Reassessment: Patient and/or family updated on plan of care and expected duration. Pain ha1 level reassessed. Patient is alert, oriented x 3, equal unlabored respirations, skin warm/dry/pink. PAIN 5/10 Patient states feeling better. Patient states symptoms have improved. 01:40 Reassessment: Patient and/or family updated on plan of care and expected duration. Pain ha1 level reassessed. Patient is alert, oriented x 3, equal unlabored respirations, skin warm/dry/pink. Patient denies pain at this time. Patient states feeling better. Patient states symptoms have improved. Vital Signs: 07/24 20:57 BP 117 / 68; Pulse 60; Resp 14; Temp 97.9(O); Pulse Ox 100% on R/A; Weight 81.65 kg; ss Height 5 ft. 2 in. ; Pain 10/10; 23:00 BP 112 / 65; Pulse 60; Resp 17 S; Pulse Ox 100% on R/A; ha1 07/25 00:00 BP 113 / 63; Pulse 65; Resp 17 S; Pulse Ox 100% on R/A; ha1 00:48 BP 112 / 60; Pulse 70; Resp 17 S; Pulse Ox 100% on R/A; ha1 01:30 BP 117 / 76; Pulse 66; Resp 17 S; Pulse Ox 100% on R/A; ha1 07/24 20:57 Body Mass Index 32.92 (81.65 kg, 157.48 cm) 07/24 20:57 Pain Scale: Adult ED Course: 07/24 20:27 Patient arrived in ED. im 20:33 Karen Melo FNP-C is PHCP. kb 20:33 Chi Kraus MD is Attending Physician. kb 20:57 Triage completed. ss 20:57 Arm band placed on left wrist. ss 21:19 Inserted saline lock: 20 gauge in right antecubital area, using aseptic technique. vk Blood collected. Flushed with 10 mL NS. 21:19 CBC with Diff Sent. vk 21:19 CMP Sent. vk 21:19 Lipase Sent. vk 21:19 Test, Urine Sent. vk 21:19 Urinalysis w/ reflexes Sent. vk 22:13 CT Chest, Abdomen, Pelvis - W/Contrast In Process Unspecified. EDMS 23:00 Patient has correct armband on for positive identification. Placed in gown. Bed in low ha1 position. Call light in reach. Side rails up X 1. Adult w/ patient. 23:03 Diamond Tejada, RN is Primary Nurse. ha1 23:48 US Abdomen Limited In Process Unspecified. EDMS 23:55 Renal Ultrasound-Complete In Process Unspecified. EDMS 07/25 02:04 No provider procedures requiring assistance completed. IV discontinued, intact, ha1 bleeding controlled, No redness/swelling at site. Pressure dressing applied. 02:05 Provided Education on: FOLLOW UP WITH OB, OVARIAN CYST, AND MEDICATION ADMINISTRATION . ha1 Administered Medications: 07/24 23:40 Drug: NS 0.9% IV 1000 ml IV at 1 bolus Per protocol; 1000 mL bolus Route: IV; Rate: 1 ha1 bolus; Site: right antecubital; 07/25 00:45 Follow up: Response: No adverse reaction; IV Status: Completed infusion; IV Intake: ha1 1000ml 07/24 23:42 Drug: Ondansetron IVP 4 mg IVP once; over 2 minutes Route: IVP; Site: right antecubital;ha1 07/25 00:00 Follow up: Response: No adverse reaction; Marked relief of symptoms ha1 07/24 23:45 Drug: TORadol - Ketorolac IVP 15 mg IVP once Route: IVP; Site: right antecubital; ha1 07/25 00:00 Follow up: Response: No adverse reaction; Marked relief of symptoms; Pain is decreased ha1 Medication: 00:44 VIS not applicable for this client. ha1 Intake: 00:45 IV: 1000ml; Total: 1000ml. ha1 Outcome: 01:45 Discharge ordered by MD. martínez 02:04 Discharged to home ambulatory, with family, ha1 02:04 Condition: stable 02:04 Discharge instructions given to patient, family, Instructed on discharge instructions, follow up and referral plans. medication usage, Demonstrated understanding of instructions, follow-up care, medications, Prescriptions given X 2, 02:06 Patient left the ED. ha1 Signatures: Dispatcher [employer] [facility] Karen Melo, J CARLOS-C CREDIT CONTROL MANAGER-Paulina Arellano RN RN Diamond Tejada RN RN ha1 Litzy Pryor Vivian vk Corrections: (The following items were deleted from the chart) 07/24 23:55 23:48 In radiology for Rp Exam Limited+US.RAD.BRZ. [facility] 07/25 00:47 07/24 23:00 GI: Abdomen is round non-distended, obese, Bowel sounds present X 4 quads. ha1 Abd is soft and non tender X 4 quads. Reports lower abdominal pain, ha1
[2024-07-25 02:27] VITALS: TEMP 97.9; O2SAT 100
[2024-07-25 02:35] VITALS: BP 117/76
--- NOTE | 2024-07-26 08:50 | RAD REPORT ---
EXAM DESCRIPTION: US - Renal Ultrasound-Complete - 07/24/2024 11:53 pm CLINICAL HISTORY: Evaluate mass COMPARISON: Made with a prior CT of the abdomen and pelvis TECHNIQUE: Ultrasound of the kidneys was performed assessing grayscale appearance and color Doppler flow. Result: KIDNEYS: The right kidney measures 11 cm longitudinally. The kidney is of normal echotexture. There is no ev idence of stone or hydronephrosis. Rounded anechoic focus in the mid polar region of the right kidney consistent with small cyst measuring approximately 8 mm likely corresponds to previously noted hypod ensity seen on CT examination The left kidney measures 12.1 cm longitudinally. The kidney is of normal echotexture. There is no e vidence of stone or hydronephrosis. BLADDER: The bladder is normal. There are bilateral ureteral jets. IMPRESSION: Small cyst in the mid polar region of the right kidney likely corresponds to previously noted hypodensity seen on CT examination. No hydronephrosis or renal calculi. Electronically signed by: Marcelo Romero MD 07/25/2024 01:29 AM CDT Due to temporary technical issues with the PACS/Fluency reporting system, reports are being signed by the in house radiologist without review as a courtesy to ensure prompt reporting. The interpreting r adiologist is fully responsible for the content of the report.
--- NOTE | 2024-07-26 08:57 | RAD REPORT ---
EXAM DESCRIPTION: US - Abdomen Exam Limited - 07/24/2024 11:47 pm CLINICAL HISTORY: 24 years Female ABD PAIN COMPARISON: No prior exams provided for comparison. TECHNIQUE: Real-time and mazariegos scale sonographic imaging of the right upper quadrant was performed. FINDINGS: The gallbladder is normal without gallstones, wall thickening, or pericholecystic fluid. N o sonographic Miguel's sign was elicited during scanning. The common bile duct is within normal limit s, measuring 4 mm in diameter. No visualized focal hepatic lesion or intrahepatic biliary dilatation. No ascites. IMPRESSION: No evidence of cholecystitis or biliary dilatation. Electronically signed by: Elizabeth Sales MD 07/25/2024 12:09 AM CDT RP Due to temporary technical issues with the PACS/Fluency reporting system, reports are being signed by the in house radiologist without review as a courtesy to ensure prompt reporting. The interpreting r adiologist is fully responsible for the content of the report.
== END 2024-07-25 02:06 | disposition home or self-care (01) ==
LOC: ER 20:24
DX: N83.291 Other ovarian cyst, right side (principal); M54.9 Dorsalgia, unspecified
CPT/HCPCS: 85025; 81001; 36415; 81025; 83690; 80053; 71260; 74177; 76705; 76770; Q9967; J2405; J7030; 96361; 96374; 96375; 99284

== ENCOUNTER 2024-07-26 13:18 | Emergency (ER) | payer BC ==
--- OUTSIDE RECORDS SUMMARY | 2024-07-26 13:21 | XMS REPORT | Continuity of Care Document ---
Author Name Unknown Address [address] [place] [address] [facility] thconnect Address [address] [place] [address] Care Team Providers Care Anthropological Linguist Name Role Phone MAX YATES Attending Clinician Unavailable MD JEB Attending Clinician Unavailab le LAB90 Attending Clinician Unavailable JAMES DHALIWAL Attending Clinician Unavaila ble LAB59 Attending Clinician Unavailable MAYA REDMAN Attending Clinician Unavail able ADRIANA VARGHESE Attending Clinician Unavailable Pcp, Patient Does Not Have A Attending Clinician Lab, Adc Fam Pob I Attending Clinician Unavailab Letty Gomez Attending Clinician LETTY VALENZUELA Attending Clinician Unavailable Payers Payer Name Policy Type Policy Number Effective Date Expirati on Date Source [facility]-[employer] CAPIT[employer]) 9 [id number] 2023 00:00:00 BCBS 2 [id number] 2023 00:00:00 Problems Condition Name Condition Details [...] NO KNOWN ALLERGIE S Drug Class Active [facility] Social History Social Habit Start Date Stop Date Quantity Comments Source Gender identity 2023-02-10 21:11:40 Identifies as female gender (finding) Glenna Jackson - External Exposure to SARS-CoV-2 (event) Not sure [facility] Sexual orientation Bernabe calista Jackson [...] Stop Date Source Unknown if ever smoked [facility] Never smoked tobacco Glenna Jackson - External Medications Ordered Medication Name Filled Medication Name Start Date Stop Date Current Medication? Ordering Clinician Indication Dosage Frequency Signature (SIG) Comments Components Source Phentermine HCl 37.5 MG oral Tablet 06-15 00:00: 00 Yes [id number] 37.5mg Take 1 tablet (37.5 mg total) by mouth every morning (before breakfast) . Glenna monroe Mounjaro 10 MG/0.5ML subcutaneou s Solution Pen-injecto r 6-14 00:00: 00 Yes Inject 1 injection into the skin once a week for 4 weeks Glenna monroe Celecoxib (CeleBREX) 200 MG oral Capsule 5-10 00:00: 00 Yes [id number] 200mg Q.5D Take 1 capsule (200 mg total) by mouth 2 times daily. Glenna monroe Gabapentin 100 MG oral Capsule 5-10 00:00: 00 Yes [id number] 100mg [id number] 3D Take 1 capsule (100 mg total) by mouth 3 times daily as needed. Glenna monroe Phentermine HCl 37.5 MG oral Tablet 04-07 00:00: 00 06-15 00:00 :00 No [id number] 37.5mg Take 1 tablet (37.5 mg total) by mouth every morning (before breakfast) . Glenna monroe Semaglutide -Weight Management (Wegovy) 1.7 MG/0.75ML subcutaneou s Solution Auto-inject or 5-10 00:00: 00 05-09 00:00 :00 No [id number] 1.7mg Inject 1.7 mg into the skin once a week. Glenna monroe Tirzepatide (Mounjaro) 10 MG/0.5ML subcutaneou s Solution Pen-injecto r 3-28 00:00: 00 05-09 00:00 :00 No [id number] 10mg Inject 0.5 mL (10 mg total) into the skin once a week. Glenna Frias l Semaglutide -Weight Management (Wegovy) 1.7 MG/0.75ML subcutaneou s Solution Auto-inject or 2-20 00:00: 00 04-07 00:00 :00 No [id number] 1.7mg Inject 1.7 mg into the skin once a week. Glnena monroe Phentermine HCl 37.5 MG oral Tablet 2-20 00:00: 00 04-07 00:00 :00 No [id number] 37.5mg Take 1 tablet (37.5 mg total) [...] 2- 00:00: 00 01-18 00:00 :00 No [id number] 1.7mg Inject 1.7 mg into the skin once a week. Glenna Jackson - Externa l Semaglutide -Weight Management (Wegovy) 1.7 MG/0.75ML subcutaneou s Solution Auto-inject or 2022-11 00:00: 00 Yes [id number] 1.7mg Inject 1.7 mg into the skin once a week. Glenna Zhoua l Phentermine HCl 37.5 MG oral Tablet 2022-11 00:00: 00 10-18 00:00 :00 No [id number] 37.5mg Take 1 tablet (37.5 mg total) by mouth every morning (before breakfast) . Glenna Jackson - Externa l Phentermine HCl 37.5 MG oral Tablet 2022-11 0 00:00: 00 10-18 00:00 :00 No [id number] 37.5mg Take 1 tablet (37.5 mg total) by mouth every morning (before breakfast) . Glenna Jackson - Externa l Semaglutide -Weight Management (Wegovy) 1 MG/0.5ML subcutaneou s Solution Auto-inject or 2022-11 0- 00:00: 00 10-18 00:00 :00 No [id number] 1mg Inject 1 mg into the skin once a week. Glenna monroe Propranolol HCl 10 MG oral Tablet 18 00:00: 00 Yes [id number] 10mg [id number] 3D TAKE ONE (1) TABLET(S) BY MOUTH THREE TIMES A DAY. Glenna monroe Semaglutide -Weight Management (Wegovy) 1 MG/0.5ML subcutaneou s Solution Auto-inject or 07-16 00:00: 00 Yes [id number] 1mg Inject 1 mg into the skin once a week Glenna monroe Phentermine HCl 37.5 MG oral Tablet 07-16 00:00: 00 Yes [id number] 37.5mg Take 1 tablet (37.5 mg total) by mouth every morning (before breakfast) Glenna monroe Propranolol HCl 10 MG oral Tablet 07-16 00:00: 00 Yes [id number] 10mg Take 1 tablet (10 mg total) by mouth 3 times daily Glenna monroe Semaglutide -Weight Management (Wegovy) 1 MG/0.5ML subcutaneou s Solution Auto-inject or 06-23 00:00: 00 07-16 00:00 :00 No [id number] 1mg Inject 1 mg into the skin once a week Glenna monroe Tirzepatide (Mounjaro) 7.5 MG/0.5ML subcutaneou s Solution Pen-injecto r 05-26 00:00: 00 Yes [id number] 7.5mg Inject 0.5 mL (7.5 mg total) into the skin once a week Glenna monroe Semaglutide -Weight Management (Wegovy) 1 MG/0.5ML subcutaneou s Solution Auto-inject or 05-25 00:00: 00 Yes [id number] 1mg Inject 1 mg into the skin once a week Glenna monroe Phentermine HCl 37.5 MG oral Tablet 05-25 00:00: 00 Yes [id number] 37.5mg Take 1 tablet (37.5 mg total) by mouth every morning (before breakfast) Glenna monroe Mounjaro 5 MG/0.5ML subcutaneou s Solution Pen-injecto r 04-19 00:00: 00 Yes Glenna monroe Semaglutide -Weight Management (Wegovy) 1 MG/0.5ML subcutaneou s Solution Auto-inject or 04-19 00:00: 00 05-25 00:00 :00 No [id number] 1mg Inject 1 mg into the skin once a week Glenna monroe Phentermine HCl 37.5 MG oral Tablet 04-19 00:00: 00 05-25 00:00 :00 No [id number] 18.75mg Take 0.5 tablets (18.75 mg total) by mouth every morning (before breakfast) Patient taking 1/2 tablet Glenna monroe Propranolol HCl 10 MG oral Tablet 03-22 00:00: 00 Yes [id number] 10mg Take 1 tablet (10 mg total) by mouth 3 times daily Glenna monroe Phentermine HCl 37.5 MG oral Tablet 03-22 00:00: 00 Yes [id number] 37.5mg Take 1 tablet (37.5 mg total) by mouth every morning (before breakfast) Glenna monroe Phentermine HCl 37.5 MG oral Tablet 02-22 00:00: 00 Yes [id number] 37.5mg Take 1 tablet (37.5 mg total) by mouth every morning (before breakfast) Glenna monroe Tirzepatide (Mounjaro) 2.5 MG/0.5ML subcutaneou s Solution Pen-injecto r 02-22 00:00: 00 05-25 00:00 :00 No [id number] 2.5mg Inject 0.5 mL (2.5 mg total) [...] Seybold - [facility]ine [facility] Tdap- (Boostrix, Adacel) Unknown [...] - External Tdap- (Boostrix, Adacel) Unknown Completed Lgenna Seybold - External Varicella Vaccine Unknown Completed [...] MMR- Measles, Mumps, Rubella Unknown Completed Glenna Jimneezold - External IPV- Inactivated Polio Vaccine Unknown [...] End Date/Time Encounter Type Admission Type Attending [facility] Care Department Encounter ID Source 2024-08-30 09:00:00 2024-08-30 09:00:00 Outpatient MAX YATES [id number] Glenna lupe 2024-07-26 00:00:00 2024-07-26 00:00:00 Outpatient MAX YATES [id number] Glenna Jackson 2024-07-26 00:00:00 2024-07-26 00:00:00 Outpatient MD GLENNA SWANSON [id number] Glenna lupe 2024-07-25 16:20:00 2024-07-25 16:20:00 Outpatient FRITZ CHOE [id number] Glenna Seybja 2024-07-25 15:30:00 2024-07-25 15:30:00 Outpatient MAX YATES [id number] Glenna lupe 2024-07-25 00:00:00 2024-07-25 00:00:00 Outpatient HUNDL, MAX GLENNA CHOE [id number] Glenna Seybja 2024-07-18 08:00:00 2024-07-18 08:00:00 Outpatient HUNDL, MAX CHOE [id number] Glenna Seybja 2024-06-15 08:00:00 2024-06-15 08:00:00 Outpatient HUNDL, MAX CHOE [id number] Glenna Seybja 2024-06-15 08:00:00 2024-06-15 08:00:00 Outpatient HUNDL, MAX CHOE [id number] Glenna Seybja 2024-05-09 11:00:00 2024-05-09 11:00:00 Outpatient HUNDL, MAX CHOE [id number] Glenna Seybja 2024-05-02 00:00:00 2024-05-02 00:00:00 Outpatient MD [facility]AN[facility] [id number] [facility] 2024-05-01 00:00:00 2024-05-01 00:00:00 Outpatient HUNDL, MAX CHOE [id number] Glenna Seybja 2024-04-10 00:00:00 2024-04-10 00:00:00 Outpatient GLENNA CHOE [id number] Glenna Seybja 2024-04-07 11:00:00 2024-04-07 11:00:00 Outpatient HUNDL, MAX CHOE [id number] Glenna Seybold 2024-02-22 00:00:00 2024-02-22 00:00:00 Outpatient HUNDL, MAX CHOE [id number] Glenna Seybja 2024-01-18 08:45:00 2024-01-18 08:45:00 Outpatient LAB90 GLENNA CHOE [id number] Glenna Seybold 2024-01-18 08:00:00 2024-01-18 08:00:00 Outpatient HUNDL, MAX CHOE [id number] Glenna Seybold 2023-12-27 00:00:00 2023-12-27 00:00:00 Outpatient HUNDL, MAX CHOE [id number] Glenna Seybja 2023-12-09 15:30:00 2023-12-09 15:30:00 Outpatient JAMES DHALIWAL GLENNA CHOE [id number] Glenna Seybold 2023-12-09 11:45:00 2023-12-09 11:45:00 Outpatient LAB59 GLENNA CHOE [id number] Glenna Seybold 2023-12-09 11:00:00 2023-12-09 11:00:00 Outpatient FEROZ MAYA GLENNA CHOE [id number] Glenna Seybold 2023-12-09 00:00:00 2023-12-09 00:00:00 Outpatient MD GLENNA SWANSON [id number] Glenna Seybold 2023-11-26 00:00:00 2023-11-26 00:00:00 Outpatient MILAN, MAX [facility] [id number] [facility] 2023-11-26 00:00:00 2023-11-26 00:00:00 Outpatient HUNDL, MAX CHOE [id number] Glenna Seybold 2023-11-23 00:00:00 2023-11-23 00:00:00 Outpatient HUNDL, MAX CHOE [id number] Glenna Seybold 2023-11-05 00:00:00 2023-11-05 00:00:00 Outpatient YOAVL, MAX CHOE [id number] Glenna Seybold 2023-10-24 00:00:00 2023-10-24 00:00:00 Outpatient HUNDL, MAX CHOE [id number] Glenna Seybold 2023-10-22 00:00:00 2023-10-22 00:00:00 Outpatient PREZASADRIANA [id number] Glenna Seybold 2023-10-22 00:00:00 2023-10-22 00:00:00 Outpatient MILAN, MAX CHOE [id number] Glenna Seybold 2023-10-18 09:15:00 2023-10-18 09:15:00 Outpatient LAB90 [facility]ENNA CHOE [id number] [facility] 2023-10-18 08:30:00 2023-10-18 08:30:00 Outpatient MILAN MAX CHOE [id number] [facility] 2023-10-14 00:00:00 2023-10-14 00:00:00 Outpatient MAX YATES [id number] [facility] 2023-09-15 00:00:00 2023-09-15 00:00:00 Outpatient ADRIANA VARGHESE [id number] [facility]enna [facility] 2023-09-09 00:00:00 2023-09-09 00:00:00 Outpatient MD GLENNA SWANSON [id number] Glenna [facility] 2023-08-31 00:00:00 2023-08-31 00:00:00 Outpatient MD GLENNA SWANSON [id number] Glenna [facility] 2023-08-24 00:00:00 2023-08-24 00:00:00 Outpatient MAX YATES [id number] Glenna [facility] 2023-08-18 00:00:00 2023-08-18 00:00:00 Outpatient MD GLENNA SWANSON [id number] Glenna [facility] 2023-08-15 00:00:00 2023-08-15 00:00:00 Outpatient MAX YATES [id number] Glenna [facility] 2023-08-12 00:00:00 2023-08-12 00:00:00 Outpatient MAX YATES [id number] Glenna [facility] 2023-08-11 00:00:00 2023-08-11 00:00:00 Outpatient MD GLENNA SWANSON [id number] Glenna ja 2023-07-26 08:00:00 2023-07-26 08:00:00 Outpatient MAX YATES [id number] Glenna lupe 2023-07-23 00:00:00 2023-07-23 00:00:00 Outpatient MD GLENNA SWANSON [id number] Glenna Jackson 2023-07-18 00:00:00 2023-07-18 00:00:00 Outpatient GLENNA CHOE [id number] Glenna Manuel 2023-07-16 08:00:00 2023-07-16 08:00:00 Outpatient MILAN MAX GLENNA CHOE [id number] Glenna Jackson 2023-06-22 00:00:00 2023-06-22 00:00:00 Outpatient CELSOADRIANA Perez GLENNA CHOE [id number] Glenna Jackson 2023-05-31 08:00:00 2023-05-31 08:00:00 Outpatient MILAN MAX CHOE [id number] Glenna Manuel 2023-05-25 11:00:00 2023-05-25 11:00:00 Outpatient HUNDMabel MAX CHOE [id number] Glenna Jackson 2023-04-19 08:30:00 2023-04-19 08:30:00 Outpatient MILAN MAX GLENNA CHOE [id number] Glenna Jackson 2023-03-22 08:00:00 2023-03-22 08:00:00 Outpatient MILAN MAX GLENNA CHOE [id number] Glenna Jackson 2023-03-17 00:00:00 2023-03-17 00:00:00 Outpatient MILAN MAX CHOE [id number] Glenna Jackson 2023-02-22 14:15:00 2023-02-22 14:15:00 Outpatient LAB90 GLENNA CHOE [id number] Glenna Jackson 2023-02-22 13:30:00 2023-02-22 13:30:00 Outpatient MILAN MAX GLENNA CHOE [id number] Glenna bereniceja 2020-07-11 00:00:00 2020-07-11 00:00:00 Letter (Out) Pcp, [facility] [id number] [facility] 2020-07-10 13:10:20 2020-07-10 13:30:20 Laboratory Only Lab, Adc Fam Pob I Letty [facility] [id number] [facility] 2020-07-10 13:20:00 2020-07-10 13:20:00 Outpatient R LETTY VALENZUELA [facility] [id number] [facility] Notes Date/Time Note Provider Source 2024-05-09 10:40:21 Chief Complaint Patient presents with Follow-up Follow up on weight management and follow up on xrays on back and hips. Delmi Lenz MA II [facility] 2024-04-07 11:04:31 Chief Complaint Patient presents with Follow-up Weigh loss Chloe Tony LVN [facility] 2024-01-18 07:52:31 Chief Complaint Patient presents with Follow-up Follow up on weight management Delmi Lenz MA II [facility] 2023-12-09 15:05:39 Chief Complaint Patient presents with Skin Problem Bumps on R thumb No Known Allergies Zara Simms [facility] 2023-12-09 10:50:22 Marcelle Segura Keke is here today for her Well Woman Exam. Patient's last menstrual period was 11/18/2023. Control Method: abstinence The patient's last Pap smear was on never and results were no results Additional concerns patient would like to address with provider: nothing [facility] 2023-07-16 08:11:43 Formatting of this n ote might be different from the original. Patient here for a follow up visit Isela Salamanca [facility]
--- NOTE | 2024-07-26 14:08 | RAD REPORT ---
EXAM DESCRIPTION: US - Abdomen Exam Limited - 07/26/2024 1:59 pm CLINICAL HISTORY: ABD PAIN COMPARISON: <Comparisons> FINDINGS: The gallbladder demonstrates no gallstones. No pericholecystic fluid or gallbladder wall t hickening. The common bile duct is normal measuring 2 mm. The liver demonstrates no findings of intrahepatic biliary dilatation. IMPRESSION: Unremarkable examination.
[2024-07-26 14:34] LABS: Absolute Eosinophils 0.2 K/uL (0-0.5); Absolute Lymphocytes (CBC) 1.5 K/uL (0.7-4.9); Absolute Monocytes 0.4 K/uL (0.1-1.3); Absolute Neutrophil 3.5 K/uL (1.8-8.0); Basophils % 0.8 % (0-1.3); Eosinophils % 2.7 % (0-4.4); Hematocrit 37.8 % (36.0-45.0); Hemoglobin 12.4 g/dL (12.0-15.0); Lymphocytes % 26.5 % (15.3-44.8); MCH 32.7 pg (27.0-35.0); MCV 99.3 fL (80-100); MPV 9.6 fL (7.6-11.3); Monocytes % 7.8 % (3.3-12.3); Neutrophils % 62.2 % (41.7-73.7); Platelets 216 thou/uL (152-406); RBC Red Blood Cell Count 3.81 M/uL (3.86-4.86); Red Cell Distribution Width 14.6 % (12.1-15.2)
[2024-07-26 14:50] LABS: Albumin 3.4 g/dL (3.4-5.0); Albumin/Globulin Ratio 0.9 (1.1-1.8); Anion Gap 6.7 mEq/L (5.0-15.0); Bilirubin Total 0.3 mg/dL (0.2-1.0); Globulin 3.6 g/dL (2.3-3.5); Potassium 3.7 mEq/L (3.5-5.1)
--- NOTE | 2024-07-26 15:17 | EDPHYS ---
Physician Documentation [facility] Name: Amy Dick Age: 24 yrs Sex: Female : 2000 Arrival Date: 07/26/2024 Time: 13:18 Bed 24 Private MD: ED Physician Yuri Chavez HPI: 07/26 13:59 This 24 yrs old Female presents to ER via Ambulatory with complaints of rn Abnormal Lab Results. 13:59 Patient was seen here on Wednesday, had slight elevation of liver function tests, CT rn case manager showed likely ruptured ovarian cyst and sent home. Patient followed up with PCP who did repeat labs and showed further elevation of AST and ALT but normal bilirubin levels. Sent back to the ER for evaluation. Patient denies pain or vomiting. Patient states he feels much better already.. The patient has not experienced similar symptoms in the past. The patient has been recently seen by a physician: The patient has been recently seen at the [facility] Emergency Department. 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 - Infectious Disease History:: Denies. - Social history:: Smoking status: Patient denies any tobacco usage or history of. - Family history:: not pertinent. - Hospitalizations: : No recent hospitalization is reported. ROS: 13:59 Constitutional: Negative for fever, chills, and weight loss, Cardiovascular: Negative rn for chest pain, palpitations, and edema, Respiratory: Negative for shortness of breath, cough, wheezing, and pleuritic chest pain, Abdomen/GI: Negative for abdominal pain, nausea, vomiting, diarrhea, and constipation, Back: Negative for injury and pain, : Negative for injury, bleeding, discharge, and swelling, MS/Extremity: Negative for injury and deformity, Skin: Negative for injury, rash, and discoloration, Neuro: Negative for headache, weakness, numbness, tingling, and seizure, Exam: 13:59 Constitutional: This is a well developed, well nourished patient who is awake, alert, rn and in no acute distress. Cardiovascular: Regular rate and rhythm. No pulse deficits. Respiratory: No increased work of breathing, no retractions or nasal flaring. Abdomen/GI: Soft, non-tender Vital Signs: 13:35 BP 127 / 63; Pulse 66; Resp 17; Temp 98; Pulse Ox 100% ; Weight 94.35 kg; Height 5 ft. ll1 2 in. ; Pain 0/10; 14:19 BP 114 / 71; Pulse 61; Resp 16; Pulse Ox 100% on R/A; me1 15:00 BP 118 / 82; Pulse 77; Resp 14; Pulse Ox 100% on R/A; me1 13:35 Body Mass Index 38.04 (94.35 kg, 157.48 cm) ll1 13:35 Pain Scale: Adult ll1 MDM: 13:22 Patient medically screened. rn 15:13 Differential Diagnosis Abnormal liver function test. Cholelithiasis. rn Choledocholithiasis. Cholecystitis. Fatty liver.. Data reviewed: vital signs, nurses notes, lab test result(s), radiologic studies, and as a result, I will discharge patient. Data reviewed: radiologic studies, ultrasound. Counseling: I had a detailed discussion with the patient and/or guardian regarding the historical points, exam findings, and any diagnostic results supporting the discharge/admit diagnosis, lab results, radiology results, the need for outpatient follow up, to return to the emergency department if symptoms worsen or persist or if there are any questions or concerns that arise at home. Special discussion: I discussed with the patient/guardian in detail that at this point there is no indication for admission to the hospital. It is understood, however, that if the symptoms persist or worsen the patient needs to return immediately for re-evaluation. ED course: AST value and down, ALT about the same. Ultrasound again no acute findings. Alk phos and bilirubin within normal limits. Advised GI follow-up and PCP follow-up and avoidance of liver toxic drugs. Patient has also been on Mounjaro for a year, taking a break and now started it back up, could be culprit. Will DC home with return precautions.. 07/26 13:37 Order name: CBC with Diff; Complete Time: 15: rn 07/26 13:37 Order name: CMP; Complete Time: 15: rn 07/26 13:37 Order name: Lipase; Complete Time: 15:01 rn 07/26 13:37 Order name: US Abdomen Limited rn 07/26 13:37 Order name: IV Start; Complete Time: 14:26 rn Administered Medications: No medications were administered Disposition Summary: 07/26/24 15:16 Discharge Ordered Notes: Location: Home rn Problem: new rn Symptoms: have improved rn Condition: Stable rn Diagnosis - Abnormal results of liver function studies rn Followup: rn - With: Ti Austin MD - When: As needed - Reason: Recheck today's complaints, Re-evaluation by your physician Discharge Instructions: - Discharge Summary Sheet rn - Liver Function Tests rn Forms: - Medication Reconciliation Form rn - Antibiotic sports internship - Prescription Opioid Use rn - Patient Portal Instructions rn - Leadership Thank You Letter rn Signatures: Dispatcher [employer] EDMS Yuri Chavez MD MD rn Lewis, Lynsay, RN RN ll1 Sabina Salmeron RN RN me1 Corrections: (The following items were deleted from the chart) 13:38 13:38 CBC+H.LAB.BRZ ordered. EDMS EDMS 13:38 13:38 COMPREHENSIVE METABOLIC PANEL+C.LAB.BRZ ordered. EDMS EDMS 13:38 13:38 LIPASE+C.LAB.BRZ ordered. EDMS EDMS 13:38 13:38 Abdomen Limited+US.RAD.BRZ ordered. EDMS EDMS
--- NOTE | 2024-07-26 15:17 | ER ---
Nurse's Notes [facility] Name: Amy Dick Age: 24 yrs Sex: Female : 2000 Arrival Date: 07/26/2024 Time: 13:18 Bed 24 Private MD: Diagnosis: Abnormal results of liver function studies Presentation: 07/26 13:31 Chief complaint: Patient states: Elevated liver enzymes found at doctors office and her ll1 last visit here. States she feels better now. Ebola Screen: Patient denies travel to an Ebola-affected area in the 21 days before illness onset. Initial Sepsis Screen: Does the patient meet any 2 criteria? No. Patient's initial sepsis screen is negative. Does the patient have a suspected source of infection? No. Patient's initial sepsis screen is negative. Risk Assessment: Do you want to hurt yourself or someone else? Patient reports no desire to harm self or others. Onset of symptoms. 13:31 Method Of Arrival: Ambulatory ll1 13:31 Acuity: ELLE 3 ll1 13:33 Coronavirus screen: Client denies travel out of the [place] in the last 14 days. At this ll1 time, the client does not indicate any symptoms associated with coronavirus-19. Onset of symptoms was July 18, 2024. Triage Assessment: 13:34 General: Appears in no apparent distress. Behavior is calm, cooperative, appropriate ll1 for age. Pain: Denies pain. Neuro: No deficits noted. Cardiovascular: No deficits noted. GI:. 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 - Infectious Disease History:: Denies. - Social history:: Smoking status: Patient denies any tobacco usage or history of. - Family history:: not pertinent. - Hospitalizations: : No recent hospitalization is reported. Screenin:43 [facility] ED Fall Risk Assessment (Adult) History of falling in the last 3 months, me1 including since admission No falls in past 3 months (0 pts) Confusion or Disorientation No (0 pts) Intoxicated or Sedated No (0 pts) Impaired Gait No (0 pts) Mobility Assist Device Used No (0 pt) Altered Elimination No (0 pt) Score/Fall Risk Level 0 - 2 = Low Risk Maintained a safe environment, Provided non-skid footwear, Hourly rounding (assess needs \T\ fall precautionary measures) done. Abuse screen: Denies threats or abuse. Nutritional screening: No deficits noted. Tuberculosis screening: No symptoms or risk factors identified. Assessment: 14:43 General: Appears comfortable, well groomed, well developed, well nourished, Behavior is me1 calm, cooperative, appropriate for age, Reports Sent by Dr's office for elevated liver enzymes. Pain: Denies pain. Neuro: Level of Consciousness is awake, alert, obeys commands, Oriented to person, place, time, situation, Appropriate for age. Cardiovascular: Patient's skin is warm and dry. Respiratory: Airway is patent Trachea midline Respiratory effort is even, unlabored, Respiratory pattern is regular, symmetrical. GI: No signs and/or symptoms were reported involving the gastrointestinal system. : No signs and/or symptoms were reported regarding the genitourinary system. EENT: No signs and/or symptoms were reported regarding the EENT system. Derm: Skin is intact, is healthy with good turgor, Skin is pink, warm \T\ dry. Musculoskeletal: No signs and/or symptoms reported regarding the musculoskeletal system. Vital Signs: 13:35 BP 127 / 63; Pulse 66; Resp 17; Temp 98; Pulse Ox 100% ; Weight 94.35 kg; Height 5 ft. ll1 2 in. ; Pain 0/10; 14:19 BP 114 / 71; Pulse 61; Resp 16; Pulse Ox 100% on R/A; me1 15:00 BP 118 / 82; Pulse 77; Resp 14; Pulse Ox 100% on R/A; me1 13:35 Body Mass Index 38.04 (94.35 kg, 157.48 cm) ll1 13:35 Pain Scale: Adult ll1 ED Course: 13:20 Patient arrived in ED. mr 13:22 Yuri Chavez MD is Attending Physician. rn 13:31 Arm band placed on. ll1 13:33 Triage completed. ll1 14:00 US Abdomen Limited In Process Unspecified. EDMS 14:15 Sabina Salmeron, RN is Primary Nurse[place] [facility] [place]:26 Lipase Sent. me1 14:26 CMP Sent. ky1 14: CBC with Diff Sent. me1 14:27 Initial lab(s) drawn, by me, sent to lab. Inserted saline lock: 22 gauge in right ky1 antecubital area, using aseptic technique. 14:43 Patient has correct armband on for positive identification. Bed in low position. Call me1 light in reach. Side rails up X2. Provided Education on: POC. Verbalized understanding. . Client placed on continuous cardiac and pulse oximetry monitoring. NIBP monitoring applied. Pulse ox on. NIBP on. 14:43 No provider procedures requiring assistance completed. me1 15:15 Ti Austin MD is Referral Physician. rn 15:26 IV discontinued, intact, bleeding controlled, No redness/swelling at site. Pressure ky1 dressing applied. Administered Medications: No medications were administered Medication: 14:43 VIS not applicable for this client. ky1 Outcome: 15:16 Discharge ordered by . rn 15:26 [place] to [place] ambulatory[place] [facility] [place] Condition: stable 15:26 Discharge instructions given to patient, Instructed on discharge instructions, follow up and referral plans. Demonstrated understanding of instructions, follow-up care, 15:27 Patient left the ED. ky1 Signatures: Dispatcher [employer] EDOK Fabby Kaur, Reg Reg mr Yuri Chavez MD MD rn Lewis, Lynsay, RN RN 1 Sabina Salmeron, RN RN [facility] [place] Corrections: (The following items were deleted from the chart) 13:39 13:35 Resp 17bpm; Pain 0/10, Adult; ll1 1 14:43 13:31 Chief complaint: Patient states: Elevated liver enzymes found at doctors office me1 and her last visit here. States she feels better now ll1
[2024-07-26 15:53] VITALS: TEMP 98; O2SAT 100
[2024-07-26 15:55] VITALS: BP 118/82
== END 2024-07-26 15:27 | disposition home or self-care (01) ==
LOC: ER 13:18
DX: R94.5 Abnormal results of liver function studies (principal)
CPT/HCPCS: 36415; 76705; 80053; 83690; 85025

== ENCOUNTER 2025-07-06 08:36 | Emergency (ER) | payer BC ==
--- OUTSIDE RECORDS SUMMARY | 2025-07-06 08:43 | XMS REPORT | Continuity of Care Document ---
Author Name Unknown Address [address] [place] [address]. [address] [place] [address] [facility] Address [address] [facility] [place]. 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 Name Role Phone MAX YATES Attending Clinician Unavailable WINSTON JIMENEZ Attending Clinician Unavailable MD JEB Attending Clinician Unavailab le [id number] Attending Clinician Unavailable TRICIA KWAN Attending Clinician Unavailable [id number] Attending Clinician Unavailable ADI BRADLEY Attending Clinician Unavailabl FRANKLIN Leung Attending Clinician Unavailable NURIA FRAGOSO Attending Clinician Unavailabl JAMES Carrasco Attending Clinician Unavaila LISSETTE Herr Attending Clinician Unavailable [id number] Attending Clinician Unavailable MAYA REDMAN Attending Clinician Unavail able ADRIANA MEZA Attending Clinician Unavailable Pcp, Patient Does Not Have A Attending Clinician Lab, Adc Fam Pob I Attending Clinician Unavailab Letty Gomez Attending Clinician [phone] LETTY VALENZUELA Attending Clinician Unavailable Payers Payer Name Policy Type Policy Number Effective Date Expirati on Date Source [facility]) 9 [id number] 2023 00:00:00 BCBS 2 [id number] 2023 00:00:00 Problems Condition Name Condition Details Condition Category Status Onset Date Resolution Date Last Treatment Date Treating Clinician Comments Source Vitamin D deficiency Vitamin D deficiency Disease Active 02-06 00:00: 00 Glenna Sebereniceja - Externa l Anemia Anemia Disease Active 02-06 00:00: 00 Glenna Seybold - Externa l Bilateral hip pain Bilateral hip pain Disease Active 05-09 00:00: 00 Glenna Sebereniceold - Externa l Acute bilateral low back pain without sciatica Acute bilateral low back pain without sciatica Disease Active 05-09 00:00: 00 Glenna Sebereniceold - Externa l Prediabete s Prediabete s Disease Active 03-22 00:00: 00 Glenna Barbraaold - Externa l BMI 50.0-59.9, adult BMI 50.0-59.9, adult Disease Active 02-22 00:00: 00 Glenna Seybold - Externa l Allergies, Adverse Reactions, Alerts Allergy Name Allergy Type Status Severity Reaction(s) Onset Date Inactive Date Treating Clinician Comments Source NO KNOWN ALLERGIE S Drug Class Active [facility] Social History Social Habit Start Date Stop Date Quantity Comments Source Gender identity 2023-02-10 21:11:40 Identifies as female gender (finding) Glenna Jackson - External Exposure to SARS-CoV-2 (event) Not sure [facility] Sexual orientation Bernabe Jackson - External ASSERTION Not Glenna Jackson - External History of tobacco use Glenna Jackson - External Alcoholic beverage intake 2025-06-22 00:00:00 2025-06-22 00:00:00 Lifetime non-drinker (finding) Glenna Jackson - External Alcohol intake 2024-01-18 00:00:00 2024-01-18 00:00:00 Lifetime non-drinker (finding) Glenna Jackson - External History of Social function 2023-08-16 00:00:00 2023-08-16 00:00:00 Glenna Jackson - External Tobacco use and exposure 2023-02-22 00:00:00 2023-02-22 00:00:00 Smokeless tobacco non-user Glenna Jackson - External Sex 2016-02-05 23:01:51 2016-02-05 23:01:51 Female (finding) Glenna Dye Sex assigned at 2000 00:00:00 2000 00:00:00 F Glenna Dey Smoking Status Start Date Stop Date Source Unknown if [facility] Never smoked tobacco Glenna Dye Medications Ordered Medication Name Filled Medication Name Start Date Stop Date Current Medication? Ordering Clinician Indication Dosage Frequency Signature (SIG) Comments Components Source Diclofenac Sodium 75 MG oral Tablet Delayed Response Diclofenac Sodium 75 MG oral Tablet Delayed Response 06-22 00:00: 00 Yes [id number] 75mg Q.5D Take 1 tablet (75 mg total) by mouth 2 times daily. Glenna monroe Phentermine HCl 37.5 MG oral Tablet Phentermine HCl 37.5 MG oral Tablet 06-12 00:00: 00 Yes [id number] 37.5mg TAKE ONE (1) TABLET(S) BY MOUTH DAILY IN THE MORNING. Glenna monroe Orphenadrin e Citrate CR 100 MG oral Tablet 12 Hour Sustained Release Orphenadrin e Citrate CR 100 MG oral Tablet 12 Hour Sustained Release 06-04 00:00: 00 Yes [id number] 100mg Q.5D Take 1 tablet (100 mg total) by mouth 2 times daily. Glenna monroe Diclofenac Sodium 75 MG oral Tablet Delayed Response Diclofenac Sodium 75 MG oral Tablet Delayed Response 06-04 00:00: 00 06-22 00:00 :00 No [id number] 75mg Q.5D Take 1 tablet (75 mg total) by mouth 2 times daily as needed. Glenna monroe Cholecalcif josé miguel (Vitamin D) 50 MCG (2000 UT) oral Capsule Cholecalcif josé miguel (Vitamin D) 50 MCG (2000 UT) oral Capsule 05-24 00:00: 00 Yes [id number] 2000U QD Take 1 capsule (2,000 units total) by mouth daily. Glenna monroe Tirzepatide -Weight Management (Zepbound) 15 MG/0.5ML subcutaneou s Solution Auto-inject or Tirzepatide -Weight Management (Zepbound) 15 MG/0.5ML subcutaneou s Solution Auto-inject or 6-06 00:00: 00 Yes [id number] 15mg Q1W Inject 0.5 mL (15 mg total) into the skin once a week. Glenna monroe Phentermine HCl 15 MG oral Capsule 5-20 00:00: 00 Yes [id number] 15mg Take 1 capsule (15 mg total) by mouth every morning. Glenna monroe Mounjaro 15 MG/0.5ML subcutaneou s Solution Auto-inject or Mounjaro 15 MG/0.5ML subcutaneou s Solution Auto-inject or 4-22 00:00: 00 Yes Glenna monroe Phentermine HCl 15 MG oral Capsule 02-28 00:00: 00 Yes [id number] 15mg Take 1 capsule (15 mg total) by mouth every morning. Glenna monroe Ferrous Sulfate 325 (65 Fe) MG oral Tablet Ferrous Sulfate 325 (65 Fe) MG oral Tablet 11 00:00: 00 Yes [id number] 325mg QD Take 1 tablet (325 mg total) by mouth daily (with breakfast) . Glenna monroe Vitamin D, Ergocalcife rol, 1.25 MG (87567 UT) oral Capsule 02-06 00:00: 00 05-04 00:00 :00 No [id number] 47878M Q1W Take 1 capsule (50,000 units total) by mouth once a week. Glenna monroe Tirzepatide -Weight Management (Zepbound) 15 MG/0.5ML subcutaneou s Solution Auto-inject or - 00:00: 00 05-04 00:00 :00 No [id number] 15mg Q1W Inject 0.5 mL (15 mg total) into the skin once a week. Glenna monroe Tirzepatide -Weight Management (Zepbound) 15 MG/0.5ML subcutaneou s Solution Auto-inject or 3-03 00:00: 00 02-01 00:00 :00 No [id number] 15mg Q1W Inject 0.5 mL (15 mg total) into the skin once a week. Glenna monroe Phentermine HCl 37.5 MG oral Tablet 2023-11 00:00: 00 Yes [id number] 37.5mg Take 1 tablet (37.5 mg total) by mouth every morning (before breakfast) . Glenna monroe Orphenadrin e Citrate CR 100 MG oral Tablet 12 Hour Sustained Release 07-25 00:00: 00 06-04 00:00 :00 No Glenna monroe Diclofenac Sodium 75 MG oral Tablet Delayed Response 07-25 00:00: 00 02-01 00:00 :00 No Glenna monroe Phentermine HCl 37.5 MG oral Tablet 06-15 00:00: 00 Yes [id number] 37.5mg Take 1 tablet (37.5 mg total) by mouth every morning (before breakfast) . Glenna monroe Mounjaro 10 MG/0.5ML subcutaneou s Solution Pen-injecto r 6-14 00:00: 00 Yes Inject 1 injection into the skin once a week for 4 weeks Glenna monroe Celecoxib (CeleBREX) 200 MG oral Capsule 5-10 00:00: 00 07-25 00:00 :00 No [id number] 200mg Q.5D Take 1 capsule (200 mg total) by mouth 2 times daily. Glenna monroe Gabapentin 100 MG oral Capsule 5-10 00:00: 00 07-25 00:00 :00 No [id number] 100mg Q.[id number] 3D Take 1 capsule (100 mg total) by mouth 3 times daily as needed. Glenna monroe Phentermine HCl 37.5 MG oral Tablet 5-10 00:00: 00 06-15 00:00 :00 No [id number] 37.5mg Take 1 tablet (37.5 mg total) by mouth every morning (before breakfast) . Glenna Jackson - Externa l Semaglutide -Weight Management (Wegovy) 1.7 MG/0.75ML subcutaneou s Solution Auto-inject or 2023- 5-10 00:00: 00 05-09 00:00 :00 No [id number] 1.7mg Inject 1.7 mg into the skin once a week. Glenna Jackson - Externa l Tirzepatide (Mounjaro) 10 MG/0.5ML subcutaneou s Solution Pen-injecto r 3-28 00:00: 00 05-09 00:00 :00 No [id number] 10mg Inject 0.5 mL (10 mg total) into the skin once a week. Glenna Jimenezold - Externa l Semaglutide -Weight Management (Wegovy) 1.7 MG/0.75ML subcutaneou s Solution Auto-inject or -20 00:00: 00 04-07 00:00 :00 No [id number] 1.7mg Inject 1.7 mg into the skin once a week. Glenna Jackson - Externa l Phentermine HCl 37.5 MG oral Tablet 2-20 00:00: 00 04-07 00:00 :00 No [id number] 37.5mg Take 1 tablet (37.5 mg total) by mouth every morning (before breakfast) . Glenna Jackson - Externa l Mounjaro 12.5 MG/0.5ML subcutaneou s Solution Pen-injecto r 1-03 00:00: 00 Yes Glenna Jackson - Externa l Phentermine HCl 37.5 MG oral Tablet 1-02 00:00: 00 01-18 00:00 :00 No 37.5mg Take 1 tablet (37.5 mg total) by mouth every morning (before breakfast) . Glenna Jimenezold - Externa l Semaglutide -Weight Management (Wegovy) 1.7 MG/0.75ML subcutaneou s Solution Auto-inject or 2022-11 2- 00:00: 00 01-18 00:00 :00 No [id number] 1.7mg Inject 1.7 mg into the skin once a week. Glenna Zhoua mabel Semaglutide -Weight Management (Wegovy) 1.7 MG/0.75ML subcutaneou s Solution Auto-inject or 2022-11 00:00: 00 Yes [id number] 1.7mg Inject 1.7 mg into the skin once a week. Glenna monroe Phentermine HCl 37.5 MG oral Tablet 2022-11 00:00: 00 10-18 00:00 :00 No [id number] 37.5mg Take 1 tablet (37.5 mg total) by mouth every morning (before breakfast) . Glenna Zhoua mabel Phentermine HCl 37.5 MG oral Tablet 2022-11 00:00: 00 10-18 00:00 :00 No [id number] 37.5mg Take 1 tablet (37.5 mg total) by mouth every morning (before breakfast) . Glenna Zhoua mabel Semaglutide -Weight Management (Wegovy) 1 MG/0.5ML subcutaneou s Solution Auto-inject or 2022-11 00:00: 00 10-18 00:00 :00 No [id number] 1mg Inject 1 mg into the skin once a week. Glenna monroe Propranolol HCl 10 MG oral Tablet Propranolol HCl 10 MG oral Tablet 9 00:00: 00 Yes [id number] 10mg Q.[id number] 3D TAKE ONE (1) TABLET(S) BY MOUTH THREE TIMES A DAY. Glenna monroe Semaglutide -Weight Management (Wegovy) 1 MG/0.5ML subcutaneou s Solution Auto-inject or 07-16 00:00: 00 Yes [id number] 1mg Inject 1 mg into the skin once a week Glenna monroe Phentermine HCl 37.5 MG oral Tablet 07-16 00:00: 00 Yes [id number] 37.5mg Take 1 tablet (37.5 mg total) by mouth every morning (before breakfast) Glenna monroe Propranolol HCl 10 MG oral Tablet 818 00:00: 00 Yes [id number] 10mg Take 1 tablet (10 mg total) by mouth 3 times daily Glenna monroe Semaglutide -Weight Management (Wegovy) 1 MG/0.5ML subcutaneou s Solution Auto-inject or 06-23 00:00: 00 07-16 00:00 :00 No [id number] 1mg Inject 1 mg into the skin once a week Glenna monroe Tirzepatide (Mounjaro) 7.5 MG/0.5ML subcutaneou s Solution Pen-injecto r 05-26 00:00: 00 Yes [id number] 7.5mg Inject 0.5 mL (7.5 mg total) into the skin once a week Glenna monroe Semaglutide -Weight Management (Wegovy) 1 MG/0.5ML subcutaneou s Solution Auto-inject or 05-25 00:00: 00 Yes [id number] 1mg Inject 1 mg into the skin once a week Glenna monroe Phentermine HCl 37.5 MG oral Tablet 05-25 00:00: 00 Yes [id number] 37.5mg Take 1 tablet (37.5 mg total) by mouth every morning (before breakfast) Glenna monroe Mounjaro 5 MG/0.5ML subcutaneou s Solution Pen-injecto r 04-19 00:00: 00 Yes Glenna monroe Semaglutide -Weight Management (Wegovy) 1 MG/0.5ML subcutaneou s Solution Auto-inject or 04-19 00:00: 00 05-25 00:00 :00 No [id number] 1mg Inject 1 mg into the skin once a week Glenna monroe Phentermine HCl 37.5 MG oral Tablet 04-19 00:00: 00 05-25 00:00 :00 No [id number] 18.75mg Take 0.5 tablets (18.75 mg total) by mouth every morning (before breakfast) Patient taking 1/2 tablet Glenna monroe Propranolol HCl 10 MG oral Tablet 03-22 00:00: 00 Yes [id number] 10mg Take 1 tablet (10 mg total) by mouth 3 times daily Glenna monroe Phentermine HCl 37.5 MG oral Tablet 03-22 00:00: 00 Yes [id number] 37.5mg Take 1 tablet (37.5 mg total) by mouth every morning (before breakfast) Glenna monroe Phentermine HCl 37.5 MG oral Tablet 02-22 00:00: 00 Yes [id number] 37.5mg Take 1 tablet (37.5 mg total) by mouth every morning (before breakfast) Glenna monroe Tirzepatide (Mounjaro) 2.5 MG/0.5ML subcutaneou s Solution Pen-injecto r 02-22 00:00: 00 05-25 00:00 :00 No [id number] 2.5mg Inject 0.5 mL (2.5 mg total) into the skin once a week Glenna monroe Immunizations Ordered Immunization Name Filled Immunization Name Date Status Comments Source Tdap- (Boostrix, Adacel) Tdap- (Boostrix, Adacel) 2024-01-18 00:00:00 Malcolm Dye Hepatitis B- 2 Dose (HEPLISAV B) Hepatitis B- 2 Dose (HEPLISAV B) 2024-01-18 00:00:00 Malcolm Dye HEPATITIS A- PEDI/ADOL 2013-07-18 00:00:00 Malcolm Dye Meningococcal Vaccine- Conjugate(Menactra) 2013-07-18 00:00:00 Malcolm Acuna External Tdap- (Boostrix, Adacel) 2013-07-18 00:00:00 Malcolm Acuna External Varicella Vaccine 2013-07-18 00:00:00 Malcolm Dye HEPATITIS A- PEDI/ADOL 2013-07-18 00:00:00 Completed Glenna Seybold - External Meningococcal Vaccine- Conjugate(Menactra) 2013-07-18 00:00:00 Completed Glenna Abdiybold - External Tdap- (Boostrix, Adacel) 2013-07-18 00:00:00 Completed Glenna Seybold - External Varicella Vaccine 2013-07-18 00:00:00 Completed Glenna Abdiybold - External HEPATITIS A- PEDI/ADOL 2013-07-18 00:00:00 Completed Glenna Seybold - External Meningococcal Vaccine- Conjugate(Menactra) 2013-07-18 00:00:00 Completed Glenna Abdiybold - External Tdap- (Boostrix, Adacel) 2013-07-18 00:00:00 Completed Glenna Abdiybold - External Varicella Vaccine 2013-07-18 00:00:00 Completed Glenna Abdiybold - External HEPATITIS A- PEDI/ADOL 2013-07-18 00:00:00 Completed Glenna Jimenezold - External Meningococcal Vaccine- Conjugate(Menactra) 2013-07-18 00:00:00 Completed Glenna Abdiybold - External Tdap- (Boostrix, Adacel) 2013-07-18 00:00:00 Completed Glenna ybold - External Varicella Vaccine 2013-07-18 00:00:00 Completed Glenna Abdiybold - External HEPATITIS A- PEDI/ADOL HEPATITIS A- PEDI/ADOL 2013-07-18 00:00:00 Completed Glenna Jackson - External Meningococcal Vaccine- Conjugate(Menactra) Meningococcal Vaccine- Conjugate(Menactra) 2013-07-18 00:00:00 Completed Glenna Abdiybold - External Tdap- (Boostrix, Adacel) Tdap- (Boostrix, Adacel) 2013-07-18 00:00:00 Completed Glenna Abdiybold - External Varicella Vaccine Varicella Vaccine 2013-07-18 00:00:00 Completed Glenna Abdiybold - External HEPATITIS A- PEDI/ADOL 2013-07-18 00:00:00 Completed Glenna Abdiybold - External Meningococcal Vaccine- Conjugate(Menactra) 2013-07-18 00:00:00 Completed Glenna Jimenezold - External Tdap- (Boostrix, Adacel) 2013-07-18 00:00:00 Completed Glenna Jimenezold - External Varicella Vaccine 2013-07-18 00:00:00 Completed Glenna Abdiybold - External DTaP Unspecified 2004-02-26 00:00:00 Completed Glenna Jimenezold - External MMR- Measles, Mumps, Rubella 2004-02-26 00:00:00 Completed Glenna Jimenezold - External IPV- Inactivated Polio Vaccine 2004-02-26 00:00:00 Completed Glenna Jimenezold - External DTaP Unspecified 2004-02-26 00:00:00 Completed Glenna Seybold - External DTaP Unspecified 2004-02-26 00:00:00 Completed Glenna Jimenezold - External MMR- Measles, Mumps, Rubella 2004-02-26 00:00:00 Completed Glenna Abdiybold - External IPV- Inactivated Polio Vaccine 2004-02-26 00:00:00 Completed Glenna Jimenezold - External MMR- Measles, Mumps, Rubella 2004-02-26 00:00:00 Completed Glenna Jimenezold - External IPV- Inactivated Polio Vaccine 2004-02-26 00:00:00 Completed Glenna Seybold - External DTaP Unspecified 2004-02-26 00:00:00 Completed Glenna Jimenezold - External MMR- Measles, Mumps, Rubella 2004-02-26 00:00:00 Completed Glenna Jimenezold - External IPV- Inactivated Polio Vaccine 2004-02-26 00:00:00 Completed Glenna Jimenezold - External DTaP Unspecified DTaP Unspecified 2004-02-26 00:00:00 Completed Glenna Jackson - External MMR- Measles, Mumps, Rubella MMR- Measles, Mumps, Rubella 2004-02-26 00:00:00 Completed Glenna Jimenezold - External IPV- Inactivated Polio Vaccine IPV- Inactivated Polio Vaccine 2004-02-26 00:00:00 Completed Glenna Jimenezold - External DTaP Unspecified 2004-02-26 00:00:00 Completed Glenna Jimenezold - External MMR- Measles, Mumps, Rubella 2004-02-26 00:00:00 Completed Glenna Jimenezold - External IPV- Inactivated Polio Vaccine 2004-02-26 00:00:00 Completed Glenna Jackson - External Hepatitis B, Adolescent Or Pediatric 2000 00:00:00 Completed Glenna Jimenezold - External IPV- Inactivated Polio Vaccine 2000 00:00:00 Completed Glenna Jimenezold - External Hepatitis B, Adolescent Or Pediatric [...] - External Hepatitis B, Adolescent Or Pediatric Hepatitis B, Adolescent Or Pediatric 2000 00:00:00 Completed Glenna Seybold - External IPV- Inactivated Polio Vaccine IPV- Inactivated Polio Vaccine 2000 00:00:00 Completed Glenna Abdiybold - External Hepatitis B, Adolescent Or Pediatric 2000 00:00:00 Completed Glenna Seybold - External IPV- Inactivated Polio Vaccine 2000 00:00:00 Completed Glenna Abdiybold - External DPT/HIB 2000 00:00:00 Completed Glenna Jimenezold - External Hepatitis B, Adolescent Or Pediatric 2000 00:00:00 Completed Glenna Seybold - External DPT/HIB 2000 00:00:00 Completed Glenna Jimenezold - External Hepatitis B, Adolescent Or Pediatric 2000 00:00:00 Completed Glenna Seybold - External DPT/HIB 2000 00:00:00 Completed Glenna Abdiybold - External Hepatitis B, Adolescent Or Pediatric 2000 00:00:00 Completed Glenna Seybold - External DPT/HIB 2000 00:00:00 Completed Glenna Seybold - External Hepatitis B, Adolescent Or Pediatric 2000 00:00:00 Completed Glenna Seybold - External DPT/HIB DPT/HIB 2000 00:00:00 Completed Glenna Abdiybold - External Hepatitis B, Adolescent Or Pediatric Hepatitis B, Adolescent Or Pediatric 2000 00:00:00 Completed Glenna Jimenezold - External DPT/HIB 2000 00:00:00 Completed Glenna Jimenezold - External Hepatitis B, Adolescent Or Pediatric 2000 00:00:00 Completed Glenna Abdiybold - External DPT/HIB 2000 00:00:00 Completed Glenna Jimenezold - External IPV- Inactivated Polio Vaccine 2000 00:00:00 Completed Glenna Abdiybold - External DPT/HIB 2000 00:00:00 Completed Glenna Abdiybold - External IPV- Inactivated Polio Vaccine 2000 00:00:00 Completed Glenna Jimenezold - External DPT/HIB 2000 00:00:00 Completed Glenna Abdiybold - External IPV- Inactivated Polio Vaccine 2000 00:00:00 Completed Glenna Jimenezold - External DPT/HIB 2000 00:00:00 Completed Glenna Jimenezold - External IPV- Inactivated Polio Vaccine 2000 00:00:00 Completed Glenna Abdiybold - External DPT/HIB DPT/HIB 2000 00:00:00 Completed Glenna Jackson - External IPV- Inactivated Polio Vaccine IPV- Inactivated Polio Vaccine 2000 00:00:00 Completed Glenna Jimenezold - External DPT/HIB 2000 00:00:00 Completed Glenna Jimenezold - External IPV- Inactivated Polio Vaccine 2000 00:00:00 Completed Glenna Jackson - External DTaP Unspecified Unknown Completed Noah Jimenezold - External DPT/HIB Unknown Completed Glenna Acuna External HEPATITIS A- PEDI/ADOL Unknown Completed Glenna Jackson - External Hepatitis B, Adolescent Or Pediatric Unknown Completed Glenna Jackson - External Meningococcal Vaccine- Conjugate(Menactra) Unknown Completed Glenna lesterbocarl - External MMR- Measles, Mumps, Rubella Unknown Completed Glenna Jackson - External IPV- Inactivated Polio Vaccine Unknown Completed Glenna Acuna External Tdap- (Boostrix, Adacel) Unknown Completed Glenna Jackson - External Varicella Vaccine Unknown Completed Ke lsey Seybold - External DTaP Unspecified Unknown [...] Seybold - External DPT/HIB Unknown Completed Glenna Abdi bold - External HEPATITIS A- PEDI/ADOL [facility], Adolescent Or Pediatric [facility] Completed Glenna Seybold - External Meningococcal Vaccine- Conjugate(Menactra) Unknown Completed Glenna S eybold - External MMR- Measles, Mumps, Rubella Unknown Completed Glenna ybold - External IPV- Inactivated Polio Vaccine Unknown Completed Glenna [facility] - External Tdap- (Boostrix, Adacel) Unknown Completed Glenna ybold - External Varicella Vaccine Unknown Completed Delfino ey Seybold - External DTaP Unspecified Unknown Completed Noah silverman Seybold - External DPT/HIB Unknown Completed Glenna Sliverman bold - External HEPATITIS A- PEDI/ADOL Unknown [facility], Adolescent Or Pediatric [facility] Meningococcal Vaccine- Conjugate(Menactra) Unknown Completed Glenna Chris eybold - External MMR- Measles, Mumps, Rubella Unknown Completed Glenna Seybold - External IPV- Inactivated Polio Vaccine Unknown Completed Glenna Seybold - External Tdap- (Boostrix, Adacel) Unknown Completed Glenna Seybold - External Varicella Vaccine Unknown Completed Delfino lsey Seybold - External Tdap- (Boostrix, Adacel) Unknown Completed Glenna Seybold - External Hepatitis B- 2 Dose (HEPLISAV B) Unknown Completed Glenna Seybold - External DTaP Unspecified Unknown Completed Noah sey Seybold - External DPT/HIB Unknown Completed Glenna Silverman bold - External HEPATITIS A- PEDI/ADOL Unknown Completed [facility] - External Hepatitis B, Adolescent Or Pediatric Unknown Completed [facility] - External Meningococcal Vaccine- Conjugate(Menactra) [facility]- Measles, Mumps, Rubella Unknown Completed [facility] - External IPV- Inactivated Polio Vaccine Unknown Completed [facility] - External Tdap- (Boostrix, Adacel) Unknown Completed [facility] - External Varicella Vaccine Unknown Completed [facility] Seybold - External Tdap- (Boostrix, Adacel) Unknown Completed [facility] - External Hepatitis B- 2 Dose (HEPLISAV B) Unknown [facility] Unspecified Unknown Completed [facility] - External DPT/HIB Unknown [facility] HEPATITIS A- PEDI/ADOL Unknown Completed [facility] External Hepatitis B, Adolescent Or Pediatric Unknown Completed [facility] - External Meningococcal Vaccine- Conjugate(Menactra) Unknown [facility] MMR- Measles, Mumps, Rubella Unknown Completed [facility] External IPV- Inactivated Polio Vaccine Unknown Completed [facility] - External Tdap- (Boostrix, Adacel) Unknown Completed [facility] External Varicella Vaccine Unknown Completed [facility] Seybold - External Tdap- (Boostrix, Adacel) Unknown Completed [facility] - External Hepatitis B- 2 Dose (HEPLISAV B) Unknown Completed [facility] - External DTaP Unspecified Unknown Completed [facility] - External DPT/HIB Unknown Completed Glenna [facility] External HEPATITIS A- PEDI/ADOL Unknown Completed [facility] External Hepatitis B, Adolescent Or Pediatric Unknown Completed [facility] - External Meningococcal Vaccine- Conjugate(Menactra) Unknown Completed [facility] - External MMR- Measles, Mumps, Rubella Unknown [facility] - External IPV- Inactivated Polio Vaccine Unknown Completed [facility] - External Tdap- (Boostrix, Adacel) Unknown [facility] External Varicella Vaccine Unknown Completed lsey Seybold - External Tdap- (Boostrix, Adacel) Unknown [...] - External Varicella Vaccine Unknown Completed Delfino ey Seybold - External Tdap- (Boostrix, Adacel) Unknown Completed Glenna Seybold - External Hepatitis B- 2 Dose (HEPLISAV B) Unknown Completed Glenna Seybold - External DTaP Unspecified Unknown Completed Noah silverman Seybold - External DPT/HIB Unknown Completed Glenna Silverman bold - External HEPATITIS A- PEDI/ADOL Unknown Completed Glenna ybold - External Hepatitis B, Adolescent Or Pediatric Unknown Completed Glenna Seybold - External Meningococcal Vaccine- Conjugate(Menactra) Unknown Completed Glenna Perez eybold - External MMR- Measles, Mumps, Rubella Unknown Completed Glenna Seybold - External IPV- Inactivated Polio Vaccine Unknown Completed Glenna Seybold - External Tdap- (Boostrix, Adacel) Unknown Completed Glenna Seybold - External Varicella Vaccine Unknown Completed Delfino ey Seybold - External Tdap- (Boostrix, Adacel) Unknown [...] Seybold - External Varicella Vaccine Unknown Completed [facility] Alexander Campusey Seybold - External Tdap- (Boostrix, Adacel) Unknown Completed Glenna Seybold - External Hepatitis B- 2 Dose (HEPLISAV B) Unknown Completed Glenna Seybold - External DTaP Unspecified Unknown Completed [facility] Seybold - External DPT/HIB Unknown Completed Glenna [facility] bold - External HEPATITIS A- PEDI/ADOL Unknown Completed Glenna Seybold - External Hepatitis B, Adolescent Or Pediatric Unknown Completed Glenna Seybold - External Meningococcal Vaccine- Conjugate(Menactra) Unknown Completed [facility] eybold - External MMR- Measles, Mumps, Rubella Unknown Completed Glenna Seybold - External IPV- Inactivated [facility]ine [facility] (Boostrix, Adacel) [facility] Varicella Vaccine Unknown Completed [facility] Seybold - External Tdap- (Boostrix, Adacel) Unknown [facility] Hepatitis B- 2 Dose (HEPLISAV B) Unknown Completed [facility] Seybold - External DTaP Unspecified Unknown Completed [facility] andra Seybold - External DPT/HIB Unknown Completed Glenna Silverman bold - External HEPATITIS A- PEDI/ADOL Unknown [facility] B, Adolescent Or Pediatric Unknown Completed [facility] - External Meningococcal Vaccine- Conjugate(Menactra) Unknown Completed Glenna S eybold - External MMR- Measles, Mumps, Rubella Unknown Completed Glenna Seybold - External IPV- Inactivated Polio Vaccine Unknown Completed Glenna Seybold - External Tdap- (Boostrix, Adacel) Unknown Completed Glenna Seybold - External Varicella Vaccine Unknown Completed Delfino [facility] Seybold - External Tdap- (Boostrix, Adacel) Unknown Completed Glenna Seybold - External Hepatitis B- 2 Dose (HEPLISAV B) Unknown Completed Glenna Seybold - External DTaP Unspecified Unknown Completed [facility] Seybold - External DPT/HIB Unknown Completed Glenna Silverman bold - External HEPATITIS A- PEDI/ADOL Unknown [facility] Hepatitis B, Adolescent Or Pediatric Unknown Completed Glenna Jimenezold - External Meningococcal Vaccine- Conjugate(Menactra) Unknown Completed Glenna Perez eybold - External MMR- Measles, Mumps, Rubella Unknown Completed Glenna Abdiybold - External IPV- Inactivated Polio Vaccine Unknown Completed Glenna Abdiybold - External Tdap- (Boostrix, Adacel) Unknown Completed Glenna Jimenezold - External Varicella Vaccine Unknown Completed Delfino lsey Seybold - External Tdap- (Boostrix, Adacel) Unknown Completed Glenna Jimenezold - External Hepatitis B- 2 Dose (HEPLISAV B) Unknown Completed Glenna Jimenezold - External DTaP Unspecified Unknown Completed Noah silverman Seybold - External DPT/HIB Unknown Completed Glenna Andra bold - External HEPATITIS A- PEDI/ADOL Unknown Completed Glenna Abdiybold - External Hepatitis B, Adolescent Or Pediatric Unknown Completed Glenna Abdiybold - External Meningococcal Vaccine- Conjugate(Menactra) Unknown Completed Glenna Chris eybold - External MMR- Measles, Mumps, Rubella Unknown Completed Glenna Jimenezold - External IPV- Inactivated Polio Vaccine Unknown Completed Glenna Jimenezold - External Tdap- (Boostrix, Adacel) Unknown Completed Glenna Jimenezold - External Varicella Vaccine Unknown Completed Delfino ferrari Seybold - External Tdap- (Boostrix, Adacel) Unknown Completed Glenna Abdiybold - External Hepatitis B- 2 Dose (HEPLISAV B) Unknown Completed Glenna Jackson - External Vital Signs Vital Name Observation Time Observation Value Comments S ource Systolic blood pressure 2025-06-04 18:18:00 96 mm[Hg] Glenna Melendez ld - External Diastolic blood pressure 2025-06-04 18:18:00 58 mm[Hg] Glenna Melendez ld - External Heart rate 2025-06-04 18:18:00 89 /min Citlalli Jackson - External Body temperature 2025-06-04 18:18:00 36.89 Erica Glenna lupe - External Respiratory rate 2025-06-04 18:18:00 14 /min Glenna Jackson - External Body height 2025-06-04 18:18:00 157.5 cm Miriam Jackson - External Body weight 2025-06-04 18:18:00 93.895 kg Miriam ey Seybold - External BMI 2025-06-04 18:18:00 37.86 kg/m2 Miriam ey Seybold - External Oxygen saturation in Arterial blood by Pulse oximetry 2025-06-04 18:18:00 99 /min Glenna Jimenezo ld - External Systolic blood pressure 2025-05-04 21:16:00 106 mm[Hg] Glenna Seybo ld - External Diastolic blood pressure 2025-05-04 21:16:00 60 mm[Hg] Glenna Seybo ld - External Heart rate 2025-05-04 21:16:00 84 /min Noahse y Seybold - External Body temperature 2025-05-04 21:16:00 36.89 Erica Glenna Seybold - External Respiratory rate 2025-05-04 21:16:00 14 /min Glenna Seybold - External Body height 2025-05-04 21:16:00 157.5 cm Miriam ey Seybold - External Body weight 2025-05-04 21:16:00 94.348 kg Miriam ey Seybold - External BMI 2025-05-04 21:16:00 38.04 kg/m2 Miriam ey Seybold - External Oxygen saturation in Arterial blood by Pulse oximetry 2025-05-04 21:16:00 98 /min Glenna Jimenezo ld - External Systolic blood pressure 2025-04-06 14:54:00 112 mm[Hg] Glenna Seybo ld - External Diastolic blood pressure 2025-04-06 14:54:00 74 mm[Hg] Glenna Abdiybo ld - External Heart rate 2025-04-06 14:54:00 80 /min Noahse y Seybold - External Body temperature 2025-04-06 14:54:00 36.61 Erica Glenna Seybold - External Respiratory rate 2025-04-06 14:54:00 18 /min Glenna Seybold - External Body height 2025-04-06 14:54:00 157.5 cm Miriam ey Seybold - External Body weight 2025-04-06 14:54:00 90.175 kg Miriam ey Seybold - External BMI 2025-04-06 14:54:00 36.36 kg/m2 Miriam ey Seybold - External Systolic blood pressure 2025-02-26 13:47:00 106 mm[Hg] Glenna Seybo ld - External Diastolic blood pressure 2025-02-26 13:47:00 73 mm[Hg] Glenna Seybo ld - External Heart rate 2025-02-26 13:47:00 97 /min Kelse y Seybold - External Respiratory rate 2025-02-26 13:47:00 18 /min Glenna Seybold - External Body height 2025-02-26 13:47:00 157.5 cm Miriam ey Seybold - External Body weight 2025-02-26 13:47:00 92.806 kg Miriam ey Seybold - External BMI 2025-02-26 13:47:00 37.42 kg/m2 Miriam ey Seybold - External Systolic blood pressure 2025-02-01 21:52:00 128 mm[Hg] Glenna Seybo ld - External Diastolic blood pressure 2025-02-01 21:52:00 64 mm[Hg] Glenna Seybo ld - External Heart rate 2025-02-01 21:52:00 97 /min Kelse y Seybold - External Body temperature 2025-02-01 21:52:00 37.11 Erica Glenna Seybold - External Respiratory rate 2025-02-01 21:52:00 15 /min Glenna Seybold - External Body height 2025-02-01 21:52:00 157.5 cm Miriam ey Seybold - External Body weight 2025-02-01 21:52:00 96.163 kg Miriam ey Seybold - External BMI 2025-02-01 21:52:00 38.78 kg/m2 Miriam ey Seybold - External Oxygen saturation in Arterial blood by Pulse oximetry 2025-02-01 21:52:00 100 /min Glenna Seybo ld - External Systolic blood pressure 2024-07-25 20:18:00 108 mm[Hg] Glenna Seybo ld - External Diastolic blood pressure 2024-07-25 20:18:00 58 mm[Hg] Glenna Seybo ld - External Heart rate 2024-07-25 20:18:00 105 /min Kelse y Seybold - External Body temperature 2024-07-25 20:18:00 36.94 Erica Glenna Seybold - External Respiratory rate 2024-07-25 20:18:00 15 /min Glenna Seybold - External Body height 2024-07-25 20:18:00 157.5 cm Miriam ey Seybold - External Body weight 2024-07-25 20:18:00 94.348 kg Miriam ey Seybold - External BMI 2024-07-25 20:18:00 38.04 kg/m2 Miriam ey Seybold - External Systolic blood pressure 2024-05-09 15:35:00 120 mm[Hg] Glenna Seybo ld - External Diastolic blood pressure 2024-05-09 15:35:00 76 mm[Hg] Glenna Seybo ld - External Heart rate 2024-05-09 15:35:00 83 /min Kelse y Seybold - External Body temperature 2024-05-09 15:35:00 36.44 Erica Glenna Seybold - External Respiratory rate 2024-05-09 15:35:00 14 /min Glenna Seybold - External Body height 2024-05-09 15:35:00 157.5 cm Miriam ey Seybold - External Body weight 2024-05-09 15:35:00 83.008 kg Miriam ey Seybold - External BMI 2024-05-09 15:35:00 33.47 [...] Pulse oximetry 2023-03-22 13:04:00 98 /min Glenna Seybo ld - External Systolic blood pressure 2023-02-22 18:31:00 110 mm[Hg] Glenna Melendez ld - External Diastolic blood pressure 2023-02-22 18:31:00 66 mm[Hg] Glenna Melendez ld - External Heart rate 2023-02-22 18:31:00 100 /min Citlalli Jackson - External Body temperature 2023-02-22 18:31:00 37 Erica Glenna Jackson - External Respiratory rate 2023-02-22 18:31:00 15 /min Glenna Jackson - External Body height 2023-02-22 18:31:00 157.5 cm Miriam Jackson - External Body weight 2023-02-22 18:31:00 137.893 kg Miriam lester Seybold - External BMI 2023-02-22 18:31:00 55.60 kg/m2 Miriam Jimenezold - External Procedures Procedure Date / Time Performed Performing Clinicia n Source XR SPINE - OUTSIDE CD/FILM 2025-06-22 00:00:00 Glenna Jackson - External Plan of Care Planned Activity Planned Date Details Comments Source Encounters Start Date/Time End Date/Time Encounter Type Admission Type Attending [facility] [place] Facility Care Department Encounter ID Source 2025-08-06 09:00:00 2025-08-06 09:00:00 Outpatient MAX YATES [id number] Glenna Jackson 2025-07-05 00:00:00 2025-07-05 00:00:00 Outpatient WINSTON JIMENEZ [id number] Glenna Jackson 2025-07-05 00:00:00 2025-07-05 00:00:00 Outpatient MD GLENNA SWANSON [id number] Glenna lupe 2025-06-26 00:00:00 2025-06-26 00:00:00 Outpatient MAX YATES [id number] Glenna Jackson 2025-06-25 00:00:00 2025-06-25 00:00:00 Outpatient WINSTON JIMENEZ [id number] Glenna Jackson 2025-06-22 12:05:00 2025-06-22 12:05:00 Outpatient GLENNA CHOE [id number] [facility] 2025-06-22 09:00:00 2025-06-22 09:00:00 Outpatient WINSTON JIMENEZ GLENNA CHOE [id number] [facility] 2025-06-22 00:00:00 2025-06-22 00:00:00 Outpatient WINSTON JIMENEZ GLENNA CHOE [id number] [facility] 2025-06-20 00:00:00 2025-06-20 00:00:00 Outpatient HUNDL, MAX CHOE [id number] [facility] 2025-06-20 00:00:00 2025-06-20 00:00:00 Outpatient HUNDL, MAX CHOE [id number] [facility] 2025-06-18 00:00:00 2025-06-18 00:00:00 Outpatient HUNDL, MAX CHOE [id number] [facility] 2025-06-14 00:00:00 2025-06-14 00:00:00 Outpatient HUNDL, MAX CHOE [id number] [facility] 2025-06-13 00:00:00 2025-06-13 00:00:00 Outpatient HUNDL, MAX CHOE [id number] [facility] 2025-06-10 00:00:00 2025-06-10 00:00:00 Outpatient HUNDL, MAX CHOE [id number] [facility] 2025-06-05 00:00:00 2025-06-05 00:00:00 Outpatient GLENNA CHOE [id number] [facility] 2025-06-04 13:30:00 2025-06-04 13:30:00 Outpatient HUNDL, MAX CHOE [id number] Glenna Seybold 2025-05-31 00:00:00 2025-05-31 00:00:00 Outpatient HUNDL, MAX CHOE [id number] Glenna Seybold 2025-05-21 00:00:00 2025-05-21 00:00:00 Outpatient HUNDL, MAX CHOE [id number] Glenna Selupe 2025-05-14 14:10:00 2025-05-14 14:10:00 Outpatient LAB90 GLENNA CHOE [id number] Glenna Manuel 2025-05-04 16:30:00 2025-05-04 16:30:00 Outpatient MILAN MAX GLENNA CHOE [id number] Glenna Manuel 2025-04-16 00:00:00 2025-04-16 00:00:00 Outpatient MAX YATES GLENNA CHOE [id number] Glenna ybja 2025-04-06 10:00:00 2025-04-06 10:00:00 Outpatient TRICIA KWAN [id number] Glenna ybja 2025-02-27 16:00:00 2025-02-27 16:00:00 Outpatient MILAN MAX CHOE [id number] Glenna ybja 2025-02-27 00:00:00 2025-02-27 00:00:00 Outpatient MD GLENNA SWANSON [id number] Glenna Abdiybja 2025-02-27 00:00:00 2025-02-27 00:00:00 Outpatient TRICIA KWAN [id number] Glenna Jackson 2025-02-26 09:15:00 2025-02-26 09:15:00 Outpatient PUD297 GLENNA CHOE [id number] Glenna Manuel 2025-02-26 08:45:00 2025-02-26 08:45:00 Outpatient TRICIA KWAN [id number] Glenna ybja 2025-02-06 00:00:00 2025-02-06 00:00:00 Outpatient HUNDMabel MAX CHOE [id number] Glenna Seybja 2025-02-02 08:00:00 2025-02-02 08:00:00 Outpatient LAB90 GLENNA CHOE [id number] Glenna Seybold 2025-02-01 16:00:00 2025-02-01 16:00:00 Outpatient MILAN, MAX CHOE [id number] Glenna Seybja 2025-01-25 00:00:00 2025-01-25 00:00:00 Outpatient MAX YATES GLENNA CHOE [id number] Glenna ja 2025 09:15:00 2025 09:15:00 Outpatient ADI BRADLEY GLENNA CHOE [id number] [facility] 2024-12-29 00:00:00 2024-12-29 00:00:00 Outpatient MILAN MAX GLENNA CHOE [id number] Glenna [facility] 2024-11-02 00:00:00 2024-11-02 00:00:00 Outpatient HUNDMabel MAX CHOE [id number] Glenna [facility] 2024-10-16 00:00:00 2024-10-16 00:00:00 Outpatient MILAN MAX CHOE [id number] Glenna [facility] 2024-10-09 08:45:00 2024-10-09 08:45:00 Outpatient FRANKLIN MOSELEY GLENNA CHOE [id number] [facility] 2024-09-27 11:15:00 2024-09-27 11:15:00 Outpatient NURIA FRAGOSO GLENNA CHOE [id number] Glenna [facility] 2024-08-31 00:00:00 2024-08-31 00:00:00 Outpatient MILAN MAX GLENNA CHOE [id number] Glenna [facility] 2024-08-30 09:45:00 2024-08-30 09:45:00 Outpatient JAMES DHALIWAL [id number] Glenna [facility] 2024-08-30 09:00:00 2024-08-30 09:00:00 Outpatient MILAN MAX CHOE [id number] [facility] 2024-08-23 00:00:00 2024-08-23 00:00:00 Outpatient GLENNA CHOE [id number] Glenna Jackson 2024-08-21 00:00:00 2024-08-21 00:00:00 Outpatient YOAVMabel MAX CHOE [id number] Glenna Jackson 2024-08-10 09:30:00 2024-08-10 09:30:00 Outpatient LISSETTE ROCHA GLENNA CHOE [id number] Glenna Seybja 2024-07-27 00:00:00 2024-07-27 00:00:00 Outpatient GLENNA CHOE [id number] Glenna ybja 2024-07-26 00:00:00 2024-07-26 00:00:00 Outpatient MAX YATES [id number] Glenna ybja 2024-07-26 00:00:00 2024-07-26 00:00:00 Outpatient MD GLENNA SWANSON [id number] [facility] 2024-07-26 00:00:00 2024-07-26 00:00:00 Outpatient GLENNA CHOE [id number] Glenna ybja 2024-07-25 16:20:00 2024-07-25 16:20:00 Outpatient LAB90 GLENNA CHOE [id number] [facility] 2024-07-25 15:30:00 2024-07-25 15:30:00 Outpatient HUNDMabel, MAX CHOE [id number] [facility] 2024-07-25 00:00:00 2024-07-25 00:00:00 Outpatient HUNDMAX Monroe [id number] [facility] 2024-07-18 08:00:00 2024-07-18 08:00:00 Outpatient MAX YATES [id number] [facility] 2024-06-15 08:00:00 2024-06-15 08:00:00 Outpatient MAX YATES [id number] Glenna Seybold 2024-06-15 08:00:00 2024-06-15 08:00:00 Outpatient HUNDMAX [place] [id number] [facility] 2024-05-09 11:00:00 2024-05-09 11:00:00 Outpatient MAX YATES [id number] Glenna Seybold 2024-05-02 00:00:00 2024-05-02 00:00:00 Outpatient MD GLENNA SWANSON [id number] Glenna Jackson 2024-05-01 00:00:00 2024-05-01 00:00:00 Outpatient YOAVMabel MAX GLENNA CHOE [id number] Glenna Jackson 2024-04-10 00:00:00 2024-04-10 00:00:00 Outpatient GLENNA CHOE [id number] Glenna Manuel 2024-04-07 11:00:00 2024-04-07 11:00:00 Outpatient MILAN MAX GLENNA CHOE [id number] Glenna Jackson 2024-02-22 00:00:00 2024-02-22 00:00:00 Outpatient YOAVMabel MAX CHOE [id number] Glenna Jackson 2024-01-18 08:45:00 2024-01-18 08:45:00 Outpatient LAB90 GLENNA CHOE [id number] Glenna Jackson 2024-01-18 08:00:00 2024-01-18 08:00:00 Outpatient MILAN MAX CHOE [id number] [facility] 2023-12-27 00:00:00 2023-12-27 00:00:00 Outpatient MAX YATES [id number] Glenna Seybja 2023-12-09 15:30:00 2023-12-09 15:30:00 Outpatient JAMES DHALIWAL [id number] Glenna Seybold 2023-12-09 11:45:00 2023-12-09 11:45:00 Outpatient LAB59 GLENNA CHOE [id number] Glenna Seybja 2023-12-09 11:00:00 2023-12-09 11:00:00 Outpatient MAYA REDMAN [id number] Glenna Seybold 2023-12-09 00:00:00 2023-12-09 00:00:00 Outpatient MD GLENNA SWANSON [id number] Glenna Seybold 2023-11-26 00:00:00 2023-11-26 00:00:00 Outpatient AMX YATES [id number] [facility] 2023-11-26 00:00:00 2023-11-26 00:00:00 Outpatient HUNDMAX Monroe GLNENA CHOE [id number] Glenna Seybold 2023-11-23 00:00:00 2023-11-23 00:00:00 Outpatient MAX YATES GLENNA CHOE [id number] Glenna Seybold 2023-11-05 00:00:00 2023-11-05 00:00:00 Outpatient MAX YATES GLENNA CHOE [id number] Glenna Seybold 2023-10-24 00:00:00 2023-10-24 00:00:00 Outpatient HUNDMabel MAX CHOE [id number] Glenna Seybold 2023-10-22 00:00:00 2023-10-22 00:00:00 Outpatient PREZASADRIANA GLENNA CHOE [id number] Glenna Seybold 2023-10-22 00:00:00 2023-10-22 00:00:00 Outpatient MAX YATES GLENNA CHOE [id number] Glenna Seybold 2023-10-18 09:15:00 2023-10-18 09:15:00 Outpatient FRITZ GLENNA CHOE [id number] Glenna Seybold 2023-10-18 08:30:00 2023-10-18 08:30:00 Outpatient HUNDMAX Monroe GLENNA CHOE [id number] Glenna Seybold 2023-10-14 00:00:00 2023-10-14 00:00:00 Outpatient HUNDMabel MAX GLENNA CHOE [id number] Glenna Seybold 2023-09-15 00:00:00 2023-09-15 00:00:00 Outpatient PREZASADRIANA GLENNA CHOE [id number] Glenna Seybold 2023-09-09 00:00:00 2023-09-09 00:00:00 Outpatient MD GLENNA SWANSON [id number] Glenna Seybja 2023-08-31 00:00:00 2023-08-31 00:00:00 Outpatient MD GLENNA SWANSON [id number] Glenna Seybja 2023-08-24 00:00:2023-08-24 00:00:00 Outpatient MAX YATES [id number] [facility] 2023-08-18 00:00:00 2023-08-18 00:00:00 Outpatient MD GLENNA SWANSON [id number] Glenna Seybja 2023-08-15 00:00:00 2023-08-15 00:00:00 Outpatient MAX YATES [id number] [facility] 2023-08-12 00:00:00 2023-08-12 00:00:00 Outpatient MAX YATES [id number] [facility] 2023-08-11 00:00:00 2023-08-11 00:00:00 Outpatient MD GLENNA SWANSON [id number] Glenna [facility] 2023-07-26 08:00:00 2023-07-26 08:00:00 Outpatient MAX YATES [id number] [facility]enna [facility] 2023-07-23 00:00:00 2023-07-23 00:00:00 Outpatient MD GLENNA SWANSON [id number] Glenna [facility] 2023-07-18 00:00:00 2023-07-18 00:00:00 Outpatient GLENNA CHOE [id number] [facility] 2023-07-16 08:00:00 2023-07-16 08:00:00 Outpatient MAX YATES [id number] [facility] 2023-06-22 00:00:00 2023-06-22 00:00:00 Outpatient PREADRIANA TAYLOR [id number] Glenna Seybja 2023-05-31 08:00:00 2023-05-31 08:00:00 Outpatient MAX YATES [id number] Glenna Seybja 2023-05-25 11:00:00 2023-05-25 11:00:00 Outpatient MAX YATES [id number] Glenna Seybja 2023-04-19 08:30:00 2023-04-19 08:30:00 Outpatient MAX YATES [id number] Glenna Jackson 2023-03-22 08:00:00 2023-03-22 08:00:00 Outpatient MAX YATES [id number] Glenna Jackson 2023-03-17 00:00:00 2023-03-17 00:00:00 Outpatient MAX YATES [id number] Glenna Jackson 2023-02-22 14:15:00 2023-02-22 14:15:00 Outpatient LAB90 GLENNA CHOE [id number] Glenna Jackson 2023-02-22 13:30:00 2023-02-22 13:30:00 Outpatient MAX YATES [id number] Glennaandra Jackson 2020-07-11 00:00:00 2020-07-11 00:00:00 Letter (Out) Pcp, Patient Does Not Have A [facility] [id number] [facility] 2020-07-10 13:10:20 2020-07-10 13:30:20 Laboratory Only Lab, Adc Fam Pob I Letty Valenzuela [facility] [id number] [facility] 2020-07-10 13:20:00 2020-07-10 13:20:00 Outpatient LETTY PHELPS [facility] [id number] [facility] Notes Date/Time Note Provider Source Referral ID Status Reason Start Date Expiration Date Visits Requested Visits Authorized [id number] Authorized Specialty Services Required 06/04/2025 09/02/2025 1 1 GlennaKalpanalupe [id number] 11:33:13* Winston Jimenez MD - 06/22/2025 9:27 AM CDT Chief Complaint Patient presents with Back Pain Lower back pain 25 year old PCP: Adriana Meza DO Referring Provider: Max Yates FNP-C 25-year-old presents for evaluation of low back pain has been bothering her since the third of this month. Denies injury. She feels that her work duties of lifting and pushing may be contributing to her symptoms. Pain is intermittent and exacerbated with bending and lifting. Denies radiating pain down lower extremities numbness tingling or weakness. She has tried diclofenac which has helped. There were no vitals filed for this visit. There is no height or weight on file to calculate BMI. Past Medical History[1] No past surgical history on file. Family History[2] Social History[3] Current Medications[4] Allergies[5] ROS: Eyes: No Ears / Nose / Throat: No Lungs / Breathing: No Digestion / Ulcers: No Bowel Movement: No Bladder Problems: No Diabetes: No Heart Problems/Rheaumatic Fever/Chest Pain: No High Blood Pressure: No High Cholesterol: No Bleeding Problems / Blood Clots: No Balance Problems: No Numbness/Tingling: No Blackout/Fainting: No Psychological Problems/Depression: No AIDS/Hepatitis: No Cancer: No Polio: No Arthritis/Rheumatoid/Gout/Lupus: No Circulatory Problems: No Thyroid: No Osteoporosis: No Pain Assessment: Location of Pain: Back Location Modifiers: Posterior Severity of Pain: 0/10 Quality of Pain: Aching Duration of Pain: Months Frequency of Pain: Intermittent Aggravating Factors: Lifting, Bending Limiting Behavior: Some Relieving Factors: Rest Result of Injury: No Work-Related Injury: No Are there other pain locations you wish to document?: No Examination patient is alert and in no acute distress. BMI is 37.86 kg/m?. Has full range of motion of hips, knees, and ankles with no pain or instabilities. No swelling or gross deformities. Skin is intact. No signs of infection. No tenderness to the paralumbar area. Forward flexion is 6 inches from the floor to the tips of her fingers with some lower back discomfort. Negative straight leg raise. Lower extremity strength is 5/5. Deep tendon reflexes 2+ bilaterally. Station grossly intact. Normal gait. Radiographs: X-ray of the lumbar spine shows there is normal alignment of the lumbar spine. Vertebral bodies are normal in height. No aggressive osseous lesions. Disc heights are maintained. Assessment: Lumbago Plan: We discussed options including physical therapy. Patient wishes to forego. Advised activity modifications and alternating ice and heat. She is provided with a home exercise program and another prescription for diclofenac to take as needed. She is to return should he have any more problems. Otherwise, follow-up as needed [1]Past Medical History: Diagnosis Date Prediabetes 03/22/2023 [2] Family History Problem Relation Name Age of Onset Cancer Mother Breast Cancer Mother Diabetes Mellitus Father Diabetes Mellitus Maternal Grandmother Diabetes Mellitus Paternal Grandmother Hypertension Paternal Grandmother Ovarian Cancer Neg Hx Uterine Cancer Neg Hx Cervical Cancer Neg Hx [3] Social History Socioeconomic History Marital status: Single Tobacco Use Smoking status: Never Smokeless tobacco: Never Vaping Use Vaping status: Some Days Substances: Nicotine-salt Devices: Disposable Substance and Sexual Activity Alcohol use: Never Drug use: Never Sexual activity: Yes control/protection: None [4] Current Outpatient Medications Medication Sig Dispense Refill Cholecalciferol (Vitamin D) 50 MCG (1999 UT) oral Capsule Take 1 capsule (2,000 units total) by mouth daily. 90 capsule 3 Ferrous Sulfate 325 (65 Fe) MG oral Tablet Take 1 tablet (325 mg total) by mouth daily (with breakfast). 90 tablet 3 Mounjaro 15 MG/0.5ML subcutaneous Solution Auto-injector Orphenadrine Citrate CR 100 MG oral Tablet 12 Hour Sustained Release Take 1 tablet (100 mg total) by mouth 2 times daily. 60 tablet 0 Phentermine HCl 37.5 MG oral Tablet TAKE ONE (1) TABLET(S) BY MOUTH DAILY IN THE MORNING. 30 tablet 0 Propranolol HCl 10 MG oral Tablet TAKE ONE (1) TABLET(S) BY MOUTH THREE TIMES A DAY. 90 tablet 0 Tirzepatide-Weight Management (Zepbound) 15 MG/0.5ML subcutaneous Solution Auto-injector Inject 0.5 mL (15 mg total) into the skin once a week. 2 mL 6 Diclofenac Sodium 75 MG oral Tablet Delayed Response Take 1 tablet (75 mg total) by mouth 2 times daily as needed. (Patient not taking: Reported on 06/22/2025.) 60 tablet 0 No current facility-administered medications for this visit.[5] No Known Allergies [place] [id number] 11:33:13Scheduled Orders Health Maintenance Due Date Last Done Comments HPV Vaccines (1 - 3-dose series) 2015 COVID-19 Vaccine ( - 2023- season) 2024 Influenza Vaccines (#1) 2025 PAP SMEAR 21-30 12/09/2026 12/09/2023, 02/2019 (Previously completed) Physical Exam 02/26/2027 02/26/2025, 01/29, 12/09/2023, Additional history exists Lipid Panel 02/02/2030 02/02/2025, 02/22/2023 Tdap Vaccines 01/18/2034 01/18/2024, 07/18/2013 RSV Vaccines (1 - 1-dose 75+ series) 2075 Pneumococcal Vaccine: Pediatrics (0 to 5 Years) and At-Risk Patients (6 to 64 Years) Aged Out No longer eligible based on patient's age to complete this topic [place] 042925-07-25 11:33:13 Diagnosis Acute midline low back pain without sciatica - Primary [place] 042925-07-25 11:33:13 [place] 47461-07-25 09:27:21 Chief Complaint Patient presents with Back Pain Lower back pain Calvin Munoz MA [place] [id number] 13:21:22 Chief Complaint Patient presents with Back Pain Mid back pain that radiates to lower back that started morning. Delmi Lenz MA [place] [id number] 16:18:37 Chief Complaint Patient presents with Follow-up Follow up weight management [facility] [id number] 09:52:43 Chief Complaint Patient presents with Follow-up AKSHAT Chlamydia Afia Almeida LVN [facility] 08:48:38 Marcelle Dick is here today for her Well Woman Exam. Patient's last menstrual period was 02/09/2025. The patient's last Pap smear was on 12/09/23 and results were Normal Patient will like STD testing Additional concerns patient would like to address with provider: no concerns T [facility]2025-03-06 15:58:15 Chief Complaint Patient presents with Follow-up Follow up on weight management [facility] [id number] 15:23:35 Chief Complaint Patient presents with Hospital F/U Follow up from [facility] last night for low abdominal pain, bilateral rib pain and spinal pain ( entire spine) for one week. ER suggested seeing PCP for further testing. She had a CT whole body, Ultrasond Abdomin, labs. No findings on testing Delmi Lenz [facility] [id number] 10:40:21 Chief Complaint Patient presents with Follow-up Follow up on weight management and follow up on xrays on back and hips. Del[facility] Lenz [id number] 11:04:31 Chief Complaint Patient presents with Follow-up Weigh loss Chloe Tony LVN GlennaA[place] [id number] 07:52:31 Chief Complaint Patient presents with Follow-up Follow up on weight management Delmi Lenz MA II T [employer] [facility]2024-01-11 15:05:39 Chief Complaint Patient presents with Skin Problem Bumps on R thumb No Known Allergies Zara Simms [facility]2024-01-11 10:50:22 Marcelle Dick is here today for her Well Woman Exam. Patient's last menstrual period was 11/18/2023. Control Method: abstinence The patient's last Pap smear was on never and results were no results Additional concerns patient would like to address with provider: nothing [facility]2023-08-18 08:11:43 Patient here for a follow up visit T Is[facility] Salam[facility]
[2025-07-06 09:21] LABS: Sqamous Epithelial <5 /HPF (None Seen); Urine Culture Reflex Order NOT NEEDED; Urine Microscopic Reflex YN ORDER UMIC
[2025-07-06] MEDS ORDERED: ONDANSETRON 4 MG/2 ML VIAL ONE (09:49)
[2025-07-06] MEDS ORDERED: KETOROLAC 30 MG/ML INJ ONE (09:49)
[2025-07-06] MEDS ORDERED: NA CHLORIDE 0.9% 1,000 ML ONE (09:49)
[2025-07-06 10:05] LABS: Absolute Lymphocytes (CBC) 1.0 K/uL (0.7-4.9); Hematocrit 40.2 % (36.0-45.0); Hemoglobin 13.5 g/dL (12.0-15.0); MCH 32.3 pg (27.0-35.0); MCHC 33.7 g/dL (32.0-36.0); MCV 96.0 fL (80-100); MPV 9.4 fL (7.6-11.3); Nucleated RBC Absolute Count 0.0 (0-0); Nucleated Red Blood Cells % 0.1 % (0-0); RBC Red Blood Cell Count 4.19 M/uL (3.86-4.86); White Blood Count 4.00 thou/uL (4.3-10.9)
[2025-07-06 10:22] LABS: ALT/SGPT 24 U/L (13-56); Albumin 3.5 g/dL (3.4-5.0); Albumin/Globulin Ratio 0.9 (1.1-1.8); Alkaline Phosphatase 43 U/L (45-117); Anion Gap 6.9 mEq/L (5.0-15.0); BUN Blood Urea Nitrogen 8 mg/dL (7-18); Globulin 3.8 g/dL (2.3-3.5); Glucose Level 97 mg/dL (74-106); Lipase 29 U/L (13-75); Potassium 3.9 mEq/L (3.5-5.1)
[2025-07-06 10:25] LABS: AST/SGOT < 10 U/L (15-37)
--- NOTE | 2025-07-06 10:41 | ER ---
Nurse's Notes [facility] Name: Amy Dick Age: 25 yrs Sex: Female : 2000 Arrival Date: 07/06/2025 Time: 08:36 Bed 20 Private MD: Diagnosis: UTI/ Urinary tract infection, site not specified;Nausea with vomiting, unspecified Presentation: 07/06 08:56 Chief complaint: Patient states: NAUSEA AND ANXIETY WITH PELVIC CRAMP AND URINARY bp FREQUENCY. Coronavirus screen: At this time, the client does not indicate any symptoms associated with coronavirus-19. Ebola Screen: No symptoms or risks identified at this time. Initial Sepsis Screen: Does the patient meet any 2 criteria? No. Patient's initial sepsis screen is negative. Does the patient have a suspected source of infection? No. Patient's initial sepsis screen is negative. Risk Assessment: Do you want to hurt yourself or someone else? Patient reports no desire to harm self or others. Onset of symptoms is unknown. 08:56 Method Of Arrival: Ambulatory bp 08:56 Acuity: ELLE 3 bp Triage Assessment: 08:58 General: Appears in no apparent distress. Behavior is cooperative, appropriate for age, bp anxious. Pain: Denies pain. EENT: No deficits noted. Neuro: No deficits noted. Cardiovascular: No deficits noted. Respiratory: No deficits noted. GI: Abd is soft and non tender X 4 quads. Reports nausea. : Reports urinary frequency. Derm: No deficits noted. Musculoskeletal: No deficits noted. STABLEHAND: 11:14 LMP N/A - Irregular menses, Not me1 Historical: - Allergies: 08:58 No Known Allergies; bp - Home Meds: 08:58 Propranolol Oral [Active]; phentermine oral [Active]; bp - PMHx: 08:58 Anxiety; OVARIAN CYST; bp - Immunization history:: Adult Immunizations up to date. - Infectious Disease History:: Denies. - Social history:: Smoking status: Patient denies any tobacco usage or history of. Screenin:02 [facility] ED Fall Risk Assessment (Adult) History of falling in the last 3 months, bp including since admission No falls in past 3 months (0 pts) Confusion or Disorientation No (0 pts) Intoxicated or Sedated No (0 pts) Impaired Gait No (0 pts) Mobility Assist Device Used No (0 pt) Altered Elimination No (0 pt) Score/Fall Risk Level 0 - 2 = Low Risk Oriented to surroundings. Abuse screen: Denies threats or abuse. Denies injuries from another. Nutritional screening: No deficits noted. Tuberculosis screening: No symptoms or risk factors identified. Assessment: 09:02 General: SEE TRIAGE NOTE. GI: Abdomen is non-distended, Abd is soft and non tender. bp 10:16 General: Appears in no apparent distress. well groomed, well developed, well nourished, me1 Behavior is calm, cooperative, appropriate for age, Reports NAUSEA AND ANXIETY WITH PELVIC CRAMP AND URINARY FREQUENCY. Pain: Complains of pain in pelvis Pain does not radiate. Pain currently is 6 out of 10 on a pain scale. Quality of pain is described as crampy, sharp, Pain began suddenly, Is intermittent. Neuro: Level of Consciousness is awake, alert, obeys commands, Oriented to person, place, time, situation, Appropriate for age. Cardiovascular: Patient's skin is warm and dry. Respiratory: Airway is patent Respiratory effort is even, unlabored, Respiratory pattern is regular, symmetrical. GI: Abdomen is non-distended, Abd is soft and non tender Reports nausea. : Reports urinary frequency, since 3 days ago. EENT: No signs and/or symptoms were reported regarding the EENT system. Derm: Skin is intact, is healthy with good turgor, Skin is pink, warm \T\ dry. Musculoskeletal: No signs and/or symptoms reported regarding the musculoskeletal system. Vital Signs: 08:56 BP 118 / 76; Pulse 85; Resp 16; Temp 98; Pulse Ox 100% ; Weight 90.72 kg; Height 5 ft. bp 2 in. ; 10:54 BP 122 / 71; Pulse 64; Resp 15; Pulse Ox 100% ; me1 08:56 Body Mass Index 36.58 (90.72 kg, 157.48 cm) bp ED Course: 08:38 Patient arrived in ED. im 08:39 Marcelo Rubio MD is Attending Physician. jr11 08:56 Salvador Pitts, CARLOS is Primary Nurse. bp 08:58 Triage completed. bp 08:58 Arm band placed on. bp 09:02 Patient has correct armband on for positive identification. bp 09:58 Initial lab(s) drawn, by me, sent to lab. Urine collected: clean catch specimen, clear. hb Inserted saline lock: 22 gauge in left antecubital area, using aseptic technique. Blood collected. Flushed with 10 mL NS. 11:14 No provider procedures requiring assistance completed. IV discontinued, intact, me1 bleeding controlled, No redness/swelling at site. Pressure dressing applied. 11:15 Provided Education on: POC. Verbalized understanding.. me1 Administered Medications: 09:58 Drug: TORadol - Ketorolac IVP 15 mg IVP once; wait for UPT Route: IVP; Site: left hb antecubital; 10:53 Follow up: Response: No adverse reaction; Pain is decreased me1 09:58 Drug: Ondansetron IVP 4 mg IVP once; over 2 minutes Route: IVP; Site: left antecubital; hb 10:53 Follow up: Response: No adverse reaction; Nausea is decreased me1 09:58 Drug: NS 0.9% IV 1000 ml IV at 1 bolus Per protocol; to be given as a bolus over 60 hb minutes Route: IV; Rate: 1 bolus; Site: left antecubital; 10:53 Follow up: Response: No adverse reaction; IV Status: Completed infusion me1 Medication: 09:02 VIS not applicable for this client. bp Outcome: 10:41 Discharge ordered by . edgardo 11:14 Discharged to home ambulatory, me1 11:14 Condition: stable 11:14 Discharge instructions given to patient, Instructed on discharge instructions, follow up and referral plans. medication usage, Demonstrated understanding of instructions, follow-up care, medications, Prescriptions given X 2, 11:15 Patient left the ED. me1 Signatures: Anneliese Evans RN RN Salvador Pitts RN RN Marcelo Rubio MD MD jrLitzy Belle Michelle RN RN me1 Corrections: (The following items were deleted from the chart) 10:15 08:56 Chief complaint: Patient states: NAUSEA AND ANXIETY WITH PELVIC CRAMP AND URINARY me1 FREQUENCY bp
--- NOTE | 2025-07-06 10:42 | EDPHYS ---
Physician Documentation [facility] Name: Amy Dick Age: 25 yrs Sex: Female : 2000 Arrival Date: 07/06/2025 Time: 08:36 Bed 20 Private MD: ED Physician Marcelo Rubio HPI: 07/06 09:21 Chief Complaint Nausea and pelvic pain for three days. History of Present Illness The jr11 patient presents with nausea and pelvic pain for the past three days, without any vomiting. She reports experiencing cramping and is concerned about a possible , although she was previously diagnosed with ovarian cysts last year. She did follow up with an [employer] or primary care provider regarding the cysts. The patient mentions urinating more frequently but does not report any burning or pain while urinating. She also has a history of anxiety, for which she has been prescribed propranolol, though she has not been exercising regularly. Her sleep is reportedly good. She has hyperlipidemia and anemia, for which she takes vit D and occasionally phentermine, but has not taken the latter for the past two days. The patient experiences anxiety potentially exacerbated by her medication regimen. She reports a sharp pain on one side when lying down, which persists mildly this morning. ROS otherwise negative. Review of Systems - Gastrointestinal: Nausea, cramping, no vomiting. - Genitourinary: Increased frequency of urination, no dysuria. - Neurological: No dizziness or headaches. - Psychiatric: Anxiety, not currently exercising. ROS otherwise negative. . 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 - Infectious Disease History:: Denies. - Social history:: Smoking status: Patient denies any tobacco usage or history of. Exam: 09:21 Constitutional: This is a well developed, well nourished patient who is awake, alert, jr11 and in no acute distress. Head/Face: Normocephalic, atraumatic. Eyes: Extra-ocular motions intact. Lids and lashes normal. Conjunctiva and sclera are non-icteric and not injected. Cornea within normal limits. Periorbital areas with no swelling, redness, or edema. ENT: Nares patent. No nasal discharge, no septal abnormalities noted. Oropharynx with no redness, swelling, or masses, exudates, or evidence of obstruction, uvula midline. Mucous membranes moist. Chest/axilla: Normal chest wall appearance and motion. Nontender with no deformity. No lesions are appreciated. Cardiovascular: Regular rate and rhythm with a normal S1 and S2. No gallops, murmurs, or rubs. Normal PMI, no JVD. No pulse deficits. Respiratory: Lungs have equal breath sounds bilaterally, clear to auscultation and percussion. No rales, rhonchi or wheezes noted. No increased work of breathing, no retractions or nasal flaring. Abdomen/GI: Soft, non-tender, with normal bowel sounds. No distension or tympany. No guarding or rebound. No evidence of tenderness throughout. Back: No spinal tenderness. No costovertebral tenderness. Full range of motion. Skin: Warm, dry with normal turgor. Normal color with no rashes, no lesions, and no evidence of cellulitis. MS/ Extremity: Pulses equal, no cyanosis. Neurovascular intact. Full, normal range of motion. Vital Signs: 08:56 BP 118 / 76; Pulse 85; Resp 16; Temp 98; Pulse Ox 100% ; Weight 90.72 kg; Height 5 ft. bp 2 in. ; 10:54 BP 122 / 71; Pulse 64; Resp 15; Pulse Ox 100% ; me1 08:56 Body Mass Index 36.58 (90.72 kg, 157.48 cm) bp MDM: 08:53 Medical Screening Exam initiated jr11 09:21 Differential diagnosis: Medical Decision Making 1. Ovarian cysts: Likely, given history jr11 and symptoms of pelvic pain and cramping. 2. Urinary tract infection: Possible, due to increased frequency of urination. 3. : Needs to be ruled out as the patient is concerned. 4. Gastroenteritis: Less likely given the absence of vomiting or diarrhea, but considered due to nausea. 5. Ectopic : Unlikely but life-threatening and should be ruled out in case of . Plan - Order urine test. - Perform pelvic ultrasound to evaluate ovarian cysts. - Conduct urinalysis to check for urinary tract infection. - Blood work including CBC to assess for anemia and dehydration. - Hydration with IV fluids. - Discuss the importance of regular exercise for anxiety management. - Follow-up with [employer] for cyst management. - Reassess medication regimen for anxiety and hyperlipidemia. 10:40 ED course: Pt sandro po, no more pain, will treat given abnl UA and sx's. Considered CT jr11 but no focal pain or pain at all. 07/06 09:07 Order name: CBC with Diff; Complete Time: 10:18 [facility] 07/06 09:07 Order name: CMP; Complete Time: 10:30 [facility] 07/06 09:07 Order name: Lipase; Complete Time: 10:30 [facility] 07/06 09:07 Order name: Test, Urine; Complete Time: 09:36 [facility] 07/06 09:07 Order name: UA Rfx Walt Cult if indicated; Complete Time: 09:36 [facility] 07/06 09:07 Order name: IV Saline Lock; Complete Time: 09:58 [facility] 07/06 09:07 Order name: Labs collected and sent; Complete Time: 09:58 [facility] Administered Medications: 09:58 Drug: TORadol - Ketorolac IVP 15 mg IVP once; wait for UPT Route: IVP; Site: left hb antecubital; 10:53 Follow up: Response: No adverse reaction; Pain is decreased me1 09:58 Drug: Ondansetron IVP 4 mg IVP once; over 2 minutes Route: IVP; Site: left antecubital; hb 10:53 Follow up: Response: No adverse reaction; Nausea is decreased me1 09:58 Drug: NS 0.9% IV 1000 ml IV at 1 bolus Per protocol; to be given as a bolus over 60 hb minutes Route: IV; Rate: 1 bolus; Site: left antecubital; 10:53 Follow up: Response: No adverse reaction; IV Status: Completed infusion me1 Disposition Summary: 07/06/25 10:41 Discharge Ordered Notes: Location: Home [facility] Condition: Stable jr11 Diagnosis - UTI/ Urinary tract infection, site not specified jr11 - Nausea with vomiting, unspecified jr11 Followup: jr11 - With: Private Physician - When: 2 - 3 days - Reason: Re-evaluation by your physician Discharge Instructions: - Discharge Summary Sheet jr11 - Urinary Tract Infection, Adult jr11 - Nausea and Vomiting, Adult, [id number] jr11 Forms: - Medication Reconciliation Form jr11 - Antibiotic Education jr11 - Prescription Opioid Use jr11 - Patient Portal Instructions jr11 - Leadership Thank You Letter jr11 Prescriptions: - ondansetron 4 mg Oral Tablet,disintegrating - take 1 tablet ORAL route every 8 hours; 12 tablet; Refills: 0, Product jr11 Selection Permitted - Cephalexin 500 mg Oral Capsule - take 1 capsule ORAL route every 8 hours for 10 days; 30 capsule; Refills: 0, jr11 Product Selection Permitted Signatures: Dispatcher [employer] EDMS Anneliese Evans RN RN Salvador Pitts RN RN bp Marcelo Rubio MD MD jr Sabina Salmeron RN me1 Corrections: (The following items were deleted from the chart) 09:08 09:08 CBC+H.LAB.BRZ ordered. EDMS EDMS 09:08 09:08 COMPREHENSIVE METABOLIC PANEL+C.LAB.BRZ ordered. EDMS EDMS 09:08 09:08 LIPASE+C.LAB.BRZ ordered. EDMS EDMS 09:08 09:08 Test, Urine+UC.LAB.BRZ ordered. EDMS EDMS 09:08 09:08 UA Rfx Walt Cult if indicated+U.LAB.BRZ ordered. EDMS EDMS
[2025-07-06 12:02] VITALS: TEMP 98; O2SAT 100
[2025-07-06 12:04] VITALS: BP 122/71
== END 2025-07-06 11:15 | disposition home or self-care (01) ==
LOC: ER 08:36
DX: N39.0 Urinary tract infection, site not specified (principal)
CPT/HCPCS: 96361; 85025; 81001; 36415; 81025; 83690; 80053; 96375; 96374; 99284; J2405; J7030